=== PATIENT | female | born 1955 | race Caucasian/White ===

== ENCOUNTER 2016-11-18 07:06 | Emergency (ER) | payer BC ==
[2016-11-18] MEDS ORDERED: Tetan/Diph/Pertus SYR(Tdap)* 0.5 ML SYR(BOOSTRIX) use SYR IM ONE (07:17)
[2016-11-18 07:34] VITALS: BP 139/76
--- NOTE | 2016-11-18 07:52 | UC ---
Bite Injury/Animal HPI - HPI Summary HPI Summary: 3 DAYS AGO TRIPPED AND FELL ON HER SLEEPING CAT. CAT WAS STARTLED AND BIT PT TO LEFT UPPER ARM. CAT IS UP TO DATE ON VACCINATIONS INCLUDING RABIES. PT DOES NOT KNOW WHEN HER LAST TETANUS SHOT WAS. NO FEVER. NO DRAINAGE FROM THE WOUND. HAS BEEN CLEANING IT WITH PEROXIDE BUT STARTED TO GET RED YESTERDAY. - History of Current Complaint Stated Complaint: CAT BITE - HER CAT Time Seen by Provider: 11/18/16 07:11 Hx Obtained From: Patient Severity Currently: Moderate Severity Initially: Mild Pain Intensity: 0 Pain Scale Used: 0-10 Numeric Onset/Duration: Gradual Onset, Lasting Days, Still Present Type of Bite: Pet Has Animal Been Immunized?: Yes Character: Puncture Aggravating Factor(s): Nothing Alleviating Factor(s): Nothing Associated Signs And Symptoms: Positive: Erythema Hx of Bite: Provoked by: - PT ACCIDENTALLY FELL ON CAT Animal Available for Observation: Yes Animal Control Notified: Yes - Allergies/Home Medications Allergies/Adverse Reactions: Allergies Allergy/AdvReac Type Severity Reaction Status Date / Time No Known Allergies Allergy Verified 08/17/14 07:23 PMH/Surg Hx/FS Hx/Imm Hx Endocrine History: Hypothyroidism Cardiovascular History: Cardiac Disease - Surgical History Surgical History: Yes Surgery Procedure, Year, and Place: CYSTs REMOVAL - Family History Known Family History: Negative: Hypertension - Social History Alcohol Use: None Substance Use Type: None Smoking Status (MU): Current Every Day Smoker Type: Cigarettes Amount Used/How Often: 1/2 ppd Have You Smoked in the Last Year: Yes Household Exposure Type: Cigarettes Review of Systems Constitutional: Negative Skin: Other - BITE LEFT UPPER ARM Respiratory: Negative Cardiovascular: Negative Gastrointestinal: Negative All Other Systems Reviewed And Are Negative: Yes Physical Exam Triage Information Reviewed: Yes Appearance: Well-Appearing, No Pain Distress, Well-Nourished Vital Signs: Initial Vital Signs Temp 97.6 F 11/18/16 07:14 Pulse 73 11/18/16 07:14 Resp 16 11/18/16 07:14 BP 139/76 11/18/16 07:14 Pulse Ox 100 11/18/16 07:14 Vital Signs Reviewed: Yes Eyes: Positive: Conjunctiva Clear ENT: Positive: Hearing grossly normal Neck: Positive: Supple Respiratory: Positive: No respiratory distress, No accessory muscle use Cardiovascular: Positive: Pulses Normal Abdomen Description: Positive: Soft Musculoskeletal: Positive: No Edema Neurological: Positive: Alert Psychological: Positive: Age Appropriate Behavior Skin: Positive: Other - 4CM X 4CM AREA OF ERYTHEMA AND 5CM X 3.5CM AREA OF ERYTHEMA LEFT UPPER ARM AROUND BITE SITES. SLIGHTLY TTP Bite Injury Course/Dx - Differential Dx/Diagnosis Provider Diagnoses: INFECTED CAT BITE LEFT UPPER ARM Discharge - Discharge Plan Condition: Stable Disposition: HOME Prescriptions: Amoxicillin/Clavulanate TAB* [Augmentin TAB 875*] 875 mg PO BID #20 tab Patient Education Materials: Animal Bite (ED) Referrals: Lola Gastelum MD [Primary Care Provider] - If Needed Additional Instructions: TETANUS IMMUNIZATION GIVEN (TDAP): You have been given an immunization against tetanus. Please record this in your records. In general, a booster is needed only once every 10 years. The tetanus shot protects against tetanus or "lockjaw," which is a complication of certain wound infections (the tetanus shot cannot protect against the actual infection). The immunization site may become warm and red due to local reaction. If this occurs, apply warm compresses and take aspirin or ibuprofen to reduce inflammation and discomfort. Return for evaluation if the reaction becomes severe. SEEK FOLLOW-UP IF YOU ARE NOT IMPROVING EXPECTED.
== END 2016-11-18 07:38 | disposition home or self-care (01) ==
LOC: UCEAST 07:06
DX: S41.152A Open bite of left upper arm, initial encounter (principal); L08.9 Local infection of the skin and subcutaneous tissue, unspecified; W55.01XA Bitten by cat, initial encounter; Y93.01 Activity, walking, marching and hiking; Y92.009 Unspecified place in unspecified non-institutional (private) residence as the place of occurrence of the external cause; Y99.9 Unspecified external cause status; Z72.0 Tobacco use
CPT/HCPCS: 90471; 90715; 99212; G0463

== ENCOUNTER 2017-08-18 09:32 | Emergency (ER) | payer BC ==
[2017-08-18] MEDS ORDERED: Dexamethasone IV* 4 MG/ML 1 ML (4 MG) IV SLOW PU ONE (11:39)
[2017-08-18] MEDS ORDERED: Ketorolac INJ* 30 MG/ML 1 ML VIAL IV PUSH ONE (11:39)
[2017-08-18 12:11] LABS: ABS Basophils 0.1 10^3/ul (0-0.2); ABS Eosinophils 0.2 10^3/ul (0-0.6); ABS Lymphocytes 1.8 10^3/ul (1.0-4.8); ABS Monocytes 0.4 10^3/ul (0-0.8); ABS Neutrophils 5.7 10^3/ul (1.5-7.7); ABS Nucleated RBC 0 10^3/ul; Eosinophil % 2.4 % (0-6); Hematocrit 42 % (35-47); Hemoglobin 14.3 g/dl (12.0-16.0); Lymphocyte % 21.7 % (25-47); Mean Corpuscular HGB Conc 34 g/dl (31-36); Mean Corpuscular Hemoglobin 30 pg (27-31); Mean Corpuscular Volume 89 fL (80-97); Mean Platelet Volume 7.6 um3 (7.4-10.4); Nucleated Red Blood Cells % 0; Platelet Count 264 10^3/ul (150-450); Red Cell Distribution Width 14 % (10.5-15); White Blood Count 8.1 10^3/ul (3.5-10.8)
[2017-08-18 12:30] LABS: Urine Appearance Clear; Urine Blood 1+ (Negative); Urine Color Yellow; Urine Ketones Negative (Negative); Urine Protein Negative (Negative); Urine Urobilinogen Negative (Negative)
[2017-08-18 12:33] LABS: EGFR Non-African American 69.4 (>60)
--- NOTE | 2017-08-18 15:37 | RAD ---
Indication: Low back pain and lower extremity weakness post fall. Comparison: December 09, 2014 CT. Technique: [employer] 1.5 Dannielle [id number] with GEM suite. Noncontrast MRI lumbar sacral spine. Report: Unremarkable conus medullaris and cauda equina. Bone marrow signal is normal throughout. Negative for fracture or spondylolysis at any level. Normal vertebral alignment accounting for exam positioning without spondylolisthesis or subluxation at any level. T12-L1: Unremarkable disc level for age without acquired spinal stenosis. L1-L2: Bilateral small paracentral disc protrusions. Negative for resulting acquired spinal stenosis. L2-L3: Small bilateral foraminal level disc protrusions without significant resulting foraminal stenosis. L3-L4: Unremarkable disc level for age without acquired spinal stenosis. L4-L5: Severe disc space narrowing. Small broad posterior disc extrusion with minimal caudal extension with only minimal resulting impression on the ventral margin of the thecal sac. Degenerative spondylosis and facet joint osteoarthritis without significant resulting foraminal stenosis. L5-S1: Severe disc space narrowing. Broad mild disc extrusion with minimal cephalad extension without significant resulting impression on the neural structures. Facet joint osteoarthritis. Negative for significant resulting foraminal stenosis. Tarlov cysts noted at the LEFT S1 and bilateral S2 levels without concern. Moderate symmetric bilateral posterior paraspinal muscle atrophy. IMPRESSION: 1. Negative for fracture. 2. Multilevel degenerative spondylosis and facet joint osteoarthritis as described without significant resulting acquired spinal stenosis. No significant interval change compared with the 2015 CT.
[2017-08-18 16:23] VITALS: BP 146/88
--- NOTE | 2017-08-18 16:43 | ED ---
Back Pain - HPI Summary HPI Summary: Patient is a 62-year-old female who presents emergency department for low back pain and leg weakness times several days. Patient denies any falls or recent injuries. Patient states pain is mostly located to her left low back and radiates into her left leg. She states that she has had 4 falls today secondary to back pain and leg weakness. She also notes that she feels an urge to urinate and have a bowel movement but is unable to. Symptoms are moderate in severity. Movement makes symptoms worse. Lying flat makes symptoms better. Past medical history of high cholesterol and hypothyroidism. - History of Current Complaint Chief Complaint: EDBackInjuryPain Stated Complaint: FALLS/BACK PAIN Time Seen by Provider: 08/18/17 11:05 Hx Obtained From: Patient Pain Intensity: 7 Pain Scale Used: 0-10 Numeric - Allergies/Home Medications Allergies/Adverse Reactions: Allergies Allergy/AdvReac Type Severity Reaction Status Date / Time No Known Allergies Allergy Verified 08/18/17 09:36 Home Medications: Home Medications Atorvastatin* [Lipitor*] 10 mg PO DAILY 08/18/17 [History Confirmed 08/18/17] Cholecalciferol (Vitamin D3) [Vitamin D3] 2,000 unit PO DAILY 08/18/17 [History Confirmed 08/18/17] Levothyroxine TAB* [Synthroid TAB*] 75 mcg PO DAILY 08/18/17 [History Confirmed 08/18/17] PMH/Surg Hx/FS Hx/Imm Hx Previously Healthy: Yes Endocrine/Hematology History: Reports: Hx Thyroid Disease - hypo Denies: Hx Diabetes Cardiovascular History: Denies: Hx Hypertension, Hx Pacemaker/ICD Respiratory History: Denies: Hx Asthma, Hx Chronic Obstructive Pulmonary Disease (COPD) GI History: Denies: Hx Ulcer Sensory History: Denies: Hx Hearing Aid Psychiatric History: Denies: Hx Panic Disorder - Cancer History Hx Chemotherapy: No Hx Radiation Therapy: No - Surgical History Surgery Procedure, Year, and Place: CYST REMOVAL - Immunization History Date of Influenza Vaccine: Fall 2016 Immunizations Up to Date: Yes Infectious Disease History: No Infectious Disease History: Denies: Hx Clostridium Difficile, Hx Hepatitis, Hx Human Immunodeficiency Virus (HIV), Hx of Known/Suspected MRSA, Hx Shingles, Hx Tuberculosis, Hx Known/ Suspected VRE, Hx Known/Suspected VRSA, History Other Infectious Disease, Traveled Outside the [place] in Last 30 Days - Family History Known Family History: Negative: Hypertension - Social History Occupation: Employed Full-time Lives: With Family Alcohol Use: None Substance Use Type: Reports: None Smoking Status (MU): Current Every Day Smoker Type: Cigarettes Amount Used/How Often: 1/2 ppd Have You Smoked in the Last Year: Yes Review of Systems Constitutional: Negative Negative: Fever, Chills Eyes: Negative ENT: Negative Cardiovascular: Negative Respiratory: Negative Gastrointestinal: Other Negative: Abdominal Pain, Vomiting, Diarrhea, Nausea Positive: other - Difficulty urinating Positive: Other - weakness and pain into legs Skin: Negative Positive: Weakness - legs All Other Systems Reviewed And Are Negative: Yes Physical Exam Triage Information Reviewed: Yes Vital Signs On Initial Exam: Initial Vitals Temp Pulse Resp BP Pulse Ox 97.1 F 70 14 135/92 99 08/18/17 09:33 08/18/17 09:33 08/18/17 09:33 08/18/17 09:33 08/18/17 09:33 Vital Signs Reviewed: Yes Appearance: Positive: Pain Distress - Patient sitting on side of bed, appears uncomfortable but nontoxic. Head/Face: Positive: Normal Head/Face Inspection Eyes: Positive: Normal Neck: Positive: Supple Abdomen Description: Positive: Nontender, Other: Musculoskeletal: Positive: Other - 2/4 patellar deep tendon reflexes bilaterally. Mild decrease in strength to the left great toe with flexion. No sensory deficits. Low lumbar midline tenderness and pain over left SI joint. Neurological: Positive: Normal, CN Intact II-III, Other - Rectal exam performed with nurse in room. Normal perianal sensation and normal tone. Psychiatric: Positive: Normal Diagnostics - Vital Signs Vital Signs Temp Pulse Resp BP Pulse Ox 08/18/17 16:20 98.7 F 57 16 146/88 98 08/18/17 14:15 97.3 F 18 118/63 08/18/17 09:33 97.1 F 70 14 135/92 99 - Laboratory Lab Results: Lab Results 08/18/17 08/18/17 08/18/17 Range/Units 11:30 12:03 12:03 WBC 8.1 (3.5-10.8) 10^3/ul RBC 4.70 (4.0-5.4) 10^6/ul Hgb 14.3 (12.0-16.0) g/dl Hct 42 (35-47) % MCV 89 (80-97) fL MCH 30 (27-31) pg MCHC 34 (31-36) g/dl RDW 14 (10.5-15) % Plt Count 264 (150-450) 10^3/ul MPV 7.6 (7.4-10.4) um3 Neut % (Auto) 70.4 (38-83) % Lymph % (Auto) 21.7 L (25-47) % Reeves % (Auto) 4.4 (0-7) % Eos % (Auto) 2.4 (0-6) % Baso % (Auto) 1.1 (0-2) % Absolute Neuts (auto) 5.7 (1.5-7.7) 10^3/ul Absolute Lymphs (auto) 1.8 (1.0-4.8) 10^3/ul Absolute Monos (auto) 0.4 (0-0.8) 10^3/ul Absolute Eos (auto) 0.2 (0-0.6) 10^3/ul Absolute Basos (auto) 0.1 (0-0.2) 10^3/ul Absolute Nucleated RBC 0 10^3/ul Nucleated RBC % 0 Sodium 140 (139-145) mmol/L Potassium 3.5 (3.5-5.0) mmol/L Chloride 103 (101-111) mmol/L Carbon Dioxide 30 (22-32) mmol/L Anion Gap 7 (2-11) mmol/L BUN 11 (6-24) mg/dL Creatinine 0.83 (0.51-0.95) mg/dL Est GFR ( Amer) 89.3 (>60) Est GFR (Non-Af Amer) 69.4 (>60) BUN/Creatinine Ratio 13.3 (8-20) Glucose 93 (70-100) mg/dL Calcium 9.3 (8.6-10.3) mg/dL Total Bilirubin 0.90 (0.2-1.0) mg/dL AST 15 (13-39) U/L ALT 14 (7-52) U/L Alkaline Phosphatase 81 (34-104) U/L Total Protein 7.1 (6.4-8.9) g/dL Albumin 4.1 (3.2-5.2) g/dL Globulin 3.0 (2-4) g/dL Albumin/Globulin Ratio 1.4 (1-3) Urine Color Yellow Urine Appearance Clear Urine pH 5.0 (5-9) Ur Specific [place] 1.010 (1.010-1.030) Urine Protein Negative (Negative) Urine Ketones Negative (Negative) Urine Blood 1+ A (Negative) Urine Nitrate Negative (Negative) Urine Bilirubin Negative (Negative) Urine Urobilinogen Negative (Negative) Ur Leukocyte Esterase Negative (Negative) Urine WBC (Auto) Trace(0-5/hpf) (Absent) Urine RBC (Auto) Trace(0-2/hpf) (Absent) Ur Squamous Epith Cells Present A (Absent) Urine Bacteria Absent (Absent) Urine Glucose Negative (Negative) Result Diagrams: 08/18/17 12:03 08/18/17 12:03 Lab Statement: Any lab studies that have been ordered have been reviewed, and results considered in the medical decision making process. Back Pain Course/Dx - Course Course Of Treatment: Pt. presenting to the ER for low back pain, leg weakness and falls. Exam and symptoms are concerning for possible cord compression. Bladder scan post void <20cc. Case was discussed with Dr. Leigh who recommends MRI. Basic labs and urine checked which were unremarkable. Pt. was given a dose of IV decadron and toradol. She declines narcotic pain medications. MRI per radiology: IMPRESSION: 1. Negative for fracture. 2. Multilevel degenerative spondylosis and facet joint osteoarthritis as described without. significant resulting acquired spinal stenosis. No significant interval change compared. with the 2015 CT. On re-exam pt. is resting comfortably. Her pain is minimally improved. Will send rx for a few days of pain meds and medrol dose pack. PATIENT CARE PROVIDER was queried and no red flag symptoms side. Patient was given information for neurosurgery for follow-up. Work excuse given. Return to the ear symptoms change or worsen. Patient understands and agrees with plan. - Diagnoses Differential Diagnosis/HQI/PQRI: Positive: Arthritis, Cauda Equina Syndrome, Compressive Cord Syndrome, Epidural Abscess, Fracture, Herniated Disc, Neoplasm , Osteomyelitis, Strain, Sprain Provider Diagnoses: Herniated disc, Spinal stenosis Discharge - Sign-Out/Discharge Documenting (check all that apply): Discharge/Admit/Transfer - Discharge Plan Condition: Good Disposition: HOME Prescriptions: Hydrocodone/Acetaminophen [Hydrocodone-Acetamin 5-325 mg] 1 each PO Q6H 3 Days # 12 tablet MDD 4 tablets methylPREDNISolone [Medrol Dosepak 4 MG*] 0 mg PO .SEE BRIAN INSTRUCTION #1 tab Patient Education Materials: Lumbar Disc Herniation (ED), Lumbar Spinal Stenosis (ED), Degenerative Disc Disease (ED) Forms: *Work Release Referrals: Lola Gastelum MD [Primary Care Provider] - Eliecer Nava MD [Medical Doctor] - Additional Instructions: Schedule a follow up appointment with neurosurgery Medication as directed Return to ER if symptoms change or worsen - Billing Disposition and Condition Condition: GOOD Disposition: HOME
== END 2017-08-18 16:24 | disposition home or self-care (01) ==
LOC: ED 09:32
DX: M51.26 Other intervertebral disc displacement, lumbar region (principal); M48.061 Spinal stenosis, lumbar region without neurogenic claudication; M47.816 Spondylosis without myelopathy or radiculopathy, lumbar region; F17.210 Nicotine dependence, cigarettes, uncomplicated
CPT/HCPCS: 36415; 72148; 80053; 81003; 81015; 85025; 87086; 96374; 96375; 99283; J1100; J1885

== ENCOUNTER 2017-08-30 12:47 | Emergency (ER) | payer BC ==
[2017-08-30] MEDS ORDERED: LORazepam TAB(*) 1 MG PO ONE (13:40)
[2017-08-30] MEDS ORDERED: Ketorolac INJ* 60 MG/2 ML VIAL IM ONE (13:40)
[2017-08-30 15:31] VITALS: BP 146/99
--- NOTE | 2017-08-30 15:44 | ED ---
Richmond Banks Natalie, scribed for Bro Devine MD on 08/30/17 at 1418 . Back Pain - HPI Summary HPI Summary: The pt is a 62 y/o F presenting to the ED c/o lower back pain starting almost a month ago, worsening in the last week. She had come to the ED on 08/18/17 for the same pain, but it has gotten increasingly worse despite being on pain medication and steroids. She states that the pain feels like her insides are coming out, and it hurts so bad that she has to leave work. The pain is rated 10/10 in severity. Pt additionally c/o tingling sensation in legs with ambulation Pt denies urinary and bowel symptoms. Her PCP is Dr. Gastelum. - History of Current Complaint Chief Complaint: EDBackInjuryPain Stated Complaint: PELVIC PAIN Time Seen by Provider: 08/30/17 13:20 Hx Obtained From: Patient Onset/Duration: Sudden Onset, Lasting Weeks, Still Present Onset/Duration: Started Weeks Ago, Resolved Timing: Lasting Weeks Back Pain Location: Is Diffuse - lower back Severity Initially: Severe Severity Currently: Severe Pain Intensity: 10 Pain Scale Used: 0-10 Numeric Aggravating Symptom(s): Movement Alleviating Symptom(s): Nothing Associated Signs And Symptoms: Positive: Tingling - in legs when walking, Other - BM urgency feeling - Allergies/Home Medications Allergies/Adverse Reactions: Allergies Allergy/AdvReac Type Severity Reaction Status Date / Time No Known Allergies Allergy Verified 08/30/17 12:59 PMH/Surg Hx/FS Hx/Imm Hx Endocrine/Hematology History: Reports: Hx Thyroid Disease - hypo Denies: Hx Diabetes Cardiovascular History: Denies: Hx Hypertension, Hx Pacemaker/ICD Respiratory History: Denies: Hx Asthma, Hx Chronic Obstructive Pulmonary Disease (COPD) GI History: Denies: Hx Ulcer Sensory History: Denies: Hx Hearing Aid Psychiatric History: Denies: Hx Panic Disorder - Cancer History Hx Chemotherapy: No Hx Radiation Therapy: No - Surgical History Surgery Procedure, Year, and Place: CYST REMOVAL - Immunization History Date of Influenza Vaccine: Fall 2016 Infectious Disease History: No Infectious Disease History: Denies: Hx Clostridium Difficile, Hx Hepatitis, Hx Human Immunodeficiency Virus (HIV), Hx of Known/Suspected MRSA, Hx Shingles, Hx Tuberculosis, Hx Known/ Suspected VRE, Hx Known/Suspected VRSA, History Other Infectious Disease, Traveled Outside the [place] in Last 30 Days - Family History Known Family History: Negative: Hypertension - Social History Alcohol Use: None Substance Use Type: Reports: None Smoking Status (MU): Heavy Every Day Tobacco Smoker Type: Cigarettes Amount Used/How Often: 1/2 ppd Have You Smoked in the Last Year: Yes Review of Systems Positive: Other - feeling of urgency for BM Positive: Paresthesia - in legs when walking All Other Systems Reviewed And Are Negative: Yes Physical Exam - Summary Physical Exam Summary: Appearance: The patient is well-nourished in no acute distress and in no acute pain. Skin: The skin is warm and dry and skin color reflects adequate perfusion. HEENT: The head is normocephalic and atraumatic. The pupils are equal and reactive. The conjunctivae are clear and without drainage. Nares are patent and without drainage. Mouth reveals moist mucous membranes and the throat is without erythema and exudate. The external ears are intact. The ear canals are patent and without drainage. The tympanic membranes are intact. Neck: the neck is supple with full range of motion and non-tender. There are no carotid bruits. There is no neck vein distension. Respiratory: Chest is non-tender. Lungs are clear to auscultation and breath sounds are symmetrical and equal. Cardiovascular: Heart is regular rate and rhythm. There is no murmur or rub auscultated. There is no peripheral edema and pulses are symmetrical and equal. Abdomen: The abdomen is soft and non-tender. There are normal bowel sounds heard in all four quadrants and there is no organomegaly palpated. Musculoskeletal: There is no back tenderness noted. Extremities are non-tender with full range of motion, except for positive straight leg raise in the right leg. There is good capillary refill. There is no peripheral edema or calf tenderness elicited. Neurological: Patient is alert and oriented to person, place and time. The patient has symmetrical motor strength in all extremities, except positive straight leg test in right leg. Cranial nerves are grossly intact. Deep tendon reflexes are symmetrical and equal in all four extremities. Psychiatric: The patient has an appropriate affect and does not exhibit any anxiety or depression. Triage Information Reviewed: Yes Vital Signs On Initial Exam: Initial Vitals Temp Pulse Resp BP Pulse Ox 98.1 F 61 16 123/93 97 08/30/17 12:55 08/30/17 12:55 08/30/17 12:55 08/30/17 12:55 08/30/17 12:55 Vital Signs Reviewed: Yes Diagnostics - Vital Signs Vital Signs Temp Pulse Resp BP Pulse Ox 08/30/17 13:21 55 135/82 98 08/30/17 12:55 98.1 F 61 16 123/93 97 - Laboratory Lab Statement: Any lab studies that have been ordered have been reviewed, and results considered in the medical decision making process. Back Pain Course/Dx - Course Course Of Treatment: Ms. Nelson is in a tough spot. She has a new diagnosis of spinal stenosis and has recently seen a neurosurgeon who said it is not surgical. She had a recent steroid burst which didn't help much. Acutely, she got some relief with ativan as a muscle relaxer and ketorolac. 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 Perhaps PT would be of help. - Diagnoses Provider Diagnoses: Spinal stenosis Discharge - Sign-Out/Discharge Documenting (check all that apply): Discharge/Admit/Transfer - Discharge Plan Condition: Stable Disposition: HOME Prescriptions: LORazepam TAB(*) [Ativan TAB(*)] 1 mg PO Q6H PRN #20 tab MDD 4 PRN Reason: Pain traMADol TAB* [Ultram*] 50 mg PO Q6HR PRN #20 tab MDD 4 PRN Reason: Pain Patient Education Materials: Lumbar Spinal Stenosis (ED) Forms: *Work Release Referrals: Lola Gastelum MD [Primary Care Provider] - 09/02/17 Additional Instructions: Please take Ativan and Tramadol as prescribed. Follow up with your primary care physician, Dr. Gastelum, next week. Please return to the emergency department for any new or worsening symptoms. - Billing Disposition and Condition Condition: STABLE Disposition: HOME The documentation as recorded by the Richmond contreras Natalie accurately reflects the service I personally performed and the decisions made by me, Bro Devine MD.
== END 2017-08-30 15:29 | disposition home or self-care (01) ==
LOC: ED 12:47
DX: M48.00 Spinal stenosis, site unspecified (principal); M54.5 Low back pain; F17.210 Nicotine dependence, cigarettes, uncomplicated; R20.0 Anesthesia of skin
CPT/HCPCS: 96372; 99282; A9270-GY; J1885

== ENCOUNTER 2018-01-18 09:34 | Emergency (ER) | payer SELFPAY ==
[2018-01-18 09:42] VITALS: BP 111/69
--- NOTE | 2018-01-18 10:01 | UC ---
Lower Extremity/Ankle HPI - HPI Summary HPI Summary: States she fell yesterday while at [facility], stepped on a wet plastic bag which was on the floor and slipped, hurting her right hip and left foot. She can walk but it hurts on the top of her foot. She has chronic lumbago and follows up with pain management ; states the day before the accident occurred she had cortisone injections in right lumbar area and suspects that pain has been mild to moderate due to that. Denies tingling, numbness on the areas. She still has some soreness on hip and has taken Aleve without any relief. - History of Current Complaint Chief Complaint: UCLowerExtremity Stated Complaint: FOOT AND THIGH INJURY Time Seen by Provider: 01/18/18 09:40 Hx Obtained From: Patient ?: No Onset/Duration: Sudden Onset, Lasting Days Severity Initially: Mild Severity Currently: Moderate Pain Intensity: 6 Aggravating Factor(s): Other - palpation of the area Alleviating Factor(s): Rest Able to Bear Weight: Yes - Risk Factors Gout Risk Factors: Age Over 40, Hyperlipidemia DVT Risk Factors: Negative Septic Arthritis Risk Factor: Negative - Allergies/Home Medications Allergies/Adverse Reactions: Allergies Allergy/AdvReac Type Severity Reaction Status Date / Time No Known Allergies Allergy Verified 01/18/18 09:44 PMH/Surg Hx/FS Hx/Imm Hx - Additional Past Medical History Additional PMH: chronic lumbago psoriasis Endocrine History: Hypothyroidism, Dyslipidemia - Surgical History Surgical History: Yes Surgery Procedure, Year, and Place: CYST REMOVAL UNSPECIFIED BREAST - Family History Known Family History: Negative: Hypertension - Social History Alcohol Use: None Substance Use Type: None Smoking Status (MU): Heavy Every Day Tobacco Smoker Type: Cigarettes Amount Used/How Often: 1/2 ppd Have You Smoked in the Last Year: Yes Household Exposure Type: Cigarettes Review of Systems Musculoskeletal: Arthralgia, Myalgia All Other Systems Reviewed And Are Negative: Yes Physical Exam Triage Information Reviewed: Yes Appearance: Well-Appearing, No Pain Distress, Well-Nourished Vital Signs: Initial Vital Signs Temp 98 F 01/18/18 09:38 Pulse 57 01/18/18 09:38 Resp 16 01/18/18 09:38 BP 111/69 01/18/18 09:38 Pulse Ox 100 01/18/18 09:38 Vital Signs Reviewed: Yes Eyes: Positive: Conjunctiva Clear ENT: Positive: Hearing grossly normal Neck: Positive: Supple, Nontender, No Lymphadenopathy Respiratory: Positive: Chest non-tender Cardiovascular: Positive: Pulses Normal, Brisk Capillary Refill Abdomen Description: Positive: Nontender Musculoskeletal: Positive: Strength Intact, ROM Intact, No Edema Neurological: Positive: Alert, Muscle Tone Normal, Other: - Isaac test negative , SLR negative, FROM of hips b/l, tender on soft tissue in right gluteal area, no hematoma or mass. Examination of left foot: no edema, no visible bruising, normal capillary refill, pedal pulses are present, tenderness on palpation of medial malleolus and dorsum foot near navicular area. No tenderness on fifth metatarsal area. Pes planus. Gait is normal, can tiptoe and walk on heels. Skin: Positive: rashes - numular rash with scaly appearance and silver red borders on dorsum of left foot and barrow Lower Extremity Course/Dx - Course Course Of Treatment: xrays of right hip and left foot were negative for fracture , to follow up with PCP in a week, discussed repeat imaging if symptoms persist. RICE, continue rest. - Differential Dx/Diagnosis Provider Diagnoses: Right Hip contussion. Left foot sprain Discharge - Sign-Out/Discharge Documenting (check all that apply): Patient Departure All imaging exams completed and their final reports reviewed: Yes - Discharge Plan Condition: Stable Disposition: HOME Patient Education Materials: Foot Sprain (ED), Hip Contusion (ED), R.I.C.E. Treatment (ED), How to Stop Smoking (ED) Referrals: Lola Gastelum MD [Primary Care Provider] - Additional Instructions: follow up with your primary care physician in a week - Billing Disposition and Condition Condition: STABLE Disposition: Home
--- NOTE | 2018-01-18 10:46 | RAD ---
HISTORY: s/p fall pain on dorsum of foot COMPARISONS: None VIEWS: 3 , Frontal, lateral, and oblique views of the left foot FINDINGS: BONE DENSITY: Normal. BONES: There is no displaced fracture. There is no Lisfranc deformity. There are posterior and plantar enthesophytes. JOINTS: There is no arthropathy. ALIGNMENT: There is no dislocation. SOFT TISSUES: Unremarkable. OTHER FINDINGS: None. IMPRESSION: NO ACUTE OSSEOUS INJURY. IF SYMPTOMS PERSIST, RECOMMEND REPEAT IMAGING.
--- NOTE | 2018-01-18 10:47 | RAD ---
HISTORY: s/p fall contusion right hip COMPARISONS: None VIEWS: 3 , Frontal view of the pelvis with frontal and frog-leg views of the right hip FINDINGS: BONE DENSITY: There is diffuse osteopenia. BONES: There is no displaced fracture. 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 ALIGNMENT: There is no dislocation. SOFT TISSUES: Unremarkable. OTHER FINDINGS: None. IMPRESSION: NO RADIOGRAPHIC EVIDENCE FOR HIP FRACTURE. X-RAYS MAY BE NEGATIVE WITH NONDISPLACED HIP FRACTURE, IF THERE IS PERSISTENT CLINICAL CONCERN, RECOMMEND CONSIDERATION OF MRI. IN THE SETTING OF CONTRAINDICATION TO MRI OR LIMITATION IN EMERGENT ACCESS TO MRI, CT WOULD BE SUGGESTED.
== END 2018-01-18 11:06 | disposition home or self-care (01) ==
LOC: UCEAST 09:34
DX: S70.01XA Contusion of right hip, initial encounter (principal); S93.602A Unspecified sprain of left foot, initial encounter; W01.0XXA Fall on same level from slipping, tripping and stumbling without subsequent striking against object, initial encounter; Y93.01 Activity, walking, marching and hiking; Y92.512 Supermarket, store or market as the place of occurrence of the external cause
CPT/HCPCS: 99211; G0463

== ENCOUNTER 2018-02-20 15:43 | Emergency (ER) | payer BC ==
[2018-02-20 16:05] VITALS: BP 122/76
--- NOTE | 2018-02-20 16:34 | UC ---
Upper Extremity HPI - HPI Summary HPI Summary: 62-year-old female presents with one-day history of bilateral shoulder aches. She was seen here on 02/14/2018 and diagnosed with a right lower lobe pneumonia. She was started on a seven-day course of ciprofloxacin which she completed today. She was seen by her primary care provider on 02/17/2018 in follow-up and was felt to be improving. Denies fever, chills, chest pain, shortness of breath, cough, abdominal pain, nausea, vomiting, numbness, tingling , or muscle weakness. - History of Current Complaint Chief Complaint: UCGeneralIllness Stated Complaint: ACHES Time Seen by Provider: 02/20/18 16:16 Hx Obtained From: Patient Onset/Duration: Gradual Onset, Lasting Days - 2 Severity Currently: Moderate Pain Intensity: 7 Character: Aching Aggravating Factor(s): Movement, Lifting, Extension Alleviating Factor(s): Nothing Associated Signs And Symptoms: Negative: Swelling, Redness, Bruising, Fever, Weakness, Numbness/Tingling - Allergies/Home Medications Allergies/Adverse Reactions: Allergies Allergy/AdvReac Type Severity Reaction Status Date / Time No Known Allergies Allergy Verified 02/20/18 16:05 PMH/Surg Hx/FS Hx/Imm Hx Endocrine History: Hypothyroidism, Dyslipidemia Respiratory History: Pneumonia - Surgical History Surgical History: Yes Surgery Procedure, Year, and Place: CYST REMOVAL UNSPECIFIED BREAST - Family History Family History: Noncontributory - Social History Occupation: Employed Part-time Lives: With Family Alcohol Use: None Substance Use Type: None Smoking Status (MU): Heavy Every Day Tobacco Smoker Type: Cigarettes Amount Used/How Often: 1/2 ppd Have You Smoked in the Last Year: Yes Household Exposure Type: Cigarettes Review of Systems Constitutional: Negative Skin: Negative Respiratory: Negative Cardiovascular: Negative Gastrointestinal: Negative Motor: Negative Neurovascular: Negative Musculoskeletal: Myalgia - See HPI Neurological: Negative Is Patient Immunocompromised?: No All Other Systems Reviewed And Are Negative: Yes Physical Exam Triage Information Reviewed: Yes Appearance: Well-Appearing, No Pain Distress, Well-Nourished Vital Signs: Initial Vital Signs Temp 97.7 F 02/20/18 16:00 Pulse 74 02/20/18 16:00 Resp 20 02/20/18 16:00 BP 122/76 02/20/18 16:00 Pulse Ox 97 02/20/18 16:00 Vital Signs Reviewed: Yes Neck: Positive: Supple, Nontender Respiratory: Positive: Lungs clear, Normal breath sounds, No respiratory distress Cardiovascular: Positive: RRR, No Murmur, Pulses Normal, Brisk Capillary Refill Musculoskeletal: Positive: Other: - Bilateral anterior shoulder tenderness. Full painful ROM. Neurological: Positive: Alert, Muscle Tone Normal, Other: - Sensation intact distally Skin Exam: Normal Upper Extremity Course/Dx - Course Course Of Treatment: 62 year old female with 2 day history of bilateral shoulder myalgia. She was recently treated with levofloxacin for RLL pneumonia and completed last dose today. Afebrile. VSS. Exam unremarkable except for some mild tenderness over bilateral anterior shoulders and painful ROM. Suspect that this is an adverse reaction to the levofloxacin. Recommend OTC analgesics and watchful waiting with follow up with PCP in 7 days. Warning symptoms requiring immediate medical attention in the ED were reviewed. Verbalizes understanding and agrees with POC. - Differential Dx/Diagnosis Differential Diagnosis/HQI/PQRI: Arthritis, Other - pleurisy Provider Diagnoses: Adverse medication reaction Discharge - Sign-Out/Discharge Documenting (check all that apply): Patient Departure All imaging exams completed and their final reports reviewed: No Studies - Discharge Plan Condition: Stable Disposition: HOME Patient Education Materials: Arthralgia (ED) Referrals: Lola Gastelum MD [Primary Care Provider] - 7 Days (For recheck) Additional Instructions: I suspect your symptoms are an adverse reaction to the antibiotic you were prescribed for the pneumonia. This a fairly common side effect and typically resolves within 1 week of stopping the medication. Take acetaminophen (Tylenol) according to directions as needed for pain. Follow up with you primary care provider in 7 days for a re-evaluation of your symptoms. You should inform your health care providers of this reaction and avoid taking the medication in the future unless absolutely necessary. Seek immediate medical attention in the emergency room if you develop fever greater than 100.5 F, have chest pain, shortness of breath, progressive muscle weakness, or any worsening of symptoms. - Billing Disposition and Condition Condition: STABLE Disposition: Home - Attestation Statements Provider Attestation: Per institutional requirements, I have reviewed the chart, however, I was not consulted specifically or made aware of this patient by the midlevel provider. I did not personally evaluate, interact with , or disposition this patient
== END 2018-02-20 16:45 | disposition home or self-care (01) ==
LOC: UCEAST 15:43
DX: T36.8X5A Adverse effect of other systemic antibiotics, initial encounter (principal); M79.10 Myalgia, unspecified site; Y92.9 Unspecified place or not applicable; F17.210 Nicotine dependence, cigarettes, uncomplicated
CPT/HCPCS: 99211; G0463

== ENCOUNTER 2018-09-17 07:01 | Emergency (ER) | payer BC ==
--- OUTSIDE RECORDS SUMMARY | 2018-09-17 07:09 | XMS REPORT | Continuity of Care Document ---
:1955 External Reference #:[id number] Author Name Shayy Jones NP Address [address] [facility] [place] [address] Care Team Providers Name Role Phone Desmond Gastelum M.D. Care Team Information Emergency Technician Unavailable Desmond Gastelum M.D. Primary Care Physician Unavailable Payers Date Identification Numbers Payment Provider Subscriber Effective: 2004 Policy Number: [id number] Michael Dawson Group Number: [id number] [address] [address] PayID: [id number] [place] [address] Advance Directives Description No Information Available Problems Active Problems Provider Date Hypothyroidism Ken Miranda M.D. Onset: 07/20/2011 Hyperlipidemia Ken Miranda M.D. Onset: 03/22/2014 Tobacco user Desmond Gastelum M.D. Onset: 11/18/2014 Vitamin D deficiency Desmond Gastelum M.D. Onset: 01/24/2015 Irritable bowel syndrome characterized by Jeffery Tinajero M.D. Onset: 11/28 constipation Generalized abdominal pain Jeffery Tinajero M.D. 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 [employer] Tobacco Use Reviewed: 03/22/18 Current Cigarette Smoker 1/2 ppd Smoking Status Reviewed: 03/22/18 Current Cigarette Smoker 1/2 ppd ETOH Use Rare Tobacco Use Start: Unknown Light tobacco smoker (10 or fewer cigarettes/day) Exercise Type/Frequency Does not exercise Current Allergies, Adverse Reactions, Alerts Active Allergies Reaction Severity Comments Date Levofloxacin 02/28/2018 Inactive Allergies NKDA 01/08/2011 Medications Active Medications SIG Qnty Indications Ordering Provider Date Cetirizine HCL 1 by mouth 14tabs R60.0 Shayy Matute 08/21/2018 10mg Tablets every day DEISY Jones Ibuprofen 1 tab by mouth 90tabs M54.2 [facility], 10/05/2016 600mg Tablets every 8 hours M.D. as needed pain. take with food Vitamin D 1 tab daily 30caps E55.9 Desmond Princeton, 11/22/2014 2000Unit Capsules M.D. Atorvastatin Calcium take 1 tablet 90tabs E78.2 Shayy Matute 11/22/2014 10mg by mouth once DEISY Jones Tablets daily Levothyroxine Sodium take 1 tablet 90tabs E03.8 Shayy Matute 11/29/2010 75mcg by mouth once DEISY Jones Tablets daily History Medications Fluconazole one tab by mouth 3tabs B37.0 [facility], 05/28/2018 - 150mg daily x 3 days M.D. 08/21/2018 Tablets Amoxicillin/Clavulana 1 by mouth twice 14tabs [facility], 05/28/2018 - te Potassium a day x 7 days M.D. 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 11/28/2017 Tablets needed Ra Vitamin D-3 take 1 capsule by 30caps Judson Cuello 05/06/2017 - 2000Unit mouth once daily Amira Martinez 11/28/2017 Capsules Fluconazole one tab by mouth 3tabs B37.0 [facility], 03/05/2017 - 150mg daily x 3 days M.D. 11/28/2017 Tablets Amoxicillin/Clavulana 1 by mouth twice 14tabs [facility], 12/11/2016 - te Potassium a day x 7 days M.D. 12/20/2016 500-125mg Tablets Cyclobenzaprine HCL 1/2-1 tablet 30tabs M54.2 Desmond Princeton, 10/05/2016 - 5mg every night at M.D. 03/04/2017 Tablets bedtime as needed Doxycycline Hyclate 2 by mouth by 2tabs Desmond Gastelum, 09/20/2016 - mouth x1 M.D. 10/04/2016 100mg Tablets Chantix Starting 1 starter pack 1tabs Z71.6 Desmond Gastelum, 03/02/2016 - Month Kranthi for a month,then M.D. 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 03/02/2016 Suspension a day, x 1 week Physical Therapy treatment and M54.31 Shanice Francis, 09/15/2015 - evaluation of Afnp-C 01/21/2016 lower back / right sciatic pain Bupropion HCL ER (XL) 1 by mouth every 30tabs Z71.6 Shanice Francis, 2015 - day [facility]np-C 01/21/2016 150mg Tablets ER 24HR Acetaminophen-Codeine 1 tab by mouth 60tabs R10.31 Desmond Gastelum, 2014 - #3 every 6 hours as M.D. 07/11/2016 300-30mg Tablets needed Bupropion HCL ER (XL) 1 by mouth every 30tabs F17.210 [facility], 2014 - day M.D. 08/10/2015 150mg Tablets ER 24HR Sulfamethoxazole/Trim 1 tab by mouth 10tabs 599.0 [facility], 2014 - ethoprim DS twice a day x5 M.D. 12/17/2014 800-160mg days Tablets Fluconazole one tab by mouth 3tabs 112.0 [facility], 12/02/2014 - 150mg daily x 3 days M.D. 01/24/2015 Tablets Vitamin D 1 tab by mouth 10caps [facility], 11/22/2014 - (Ergocalciferol) every week M.D. 01/24/2015 [id number] Capsules Gabapentin 1 tab by three 30caps 356.8 [facility], 11/18/2014 - 400mg times day M.D. 01/24/2015 Capsules Augmentin 1 by mouth twice 20tabs [facility], 11/08/2014 - 875-125mg a day x 10 days M.D. 11/18/2014 Tablets take with food Fluconazole take 1 tab daily 7tabs 112.0 [facility], 11/03/2014 - 150mg for next 7 days M.D. 11/18/2014 Tablets Fluconazole one tab by mouth 2tabs 112.0 [facility], 10/27/2014 - 150mg once, may repeat M.D. 11/03/2014 Tablets in five days Nystatin 1 teaspoon by 50ml 112.0 [facility], 10/27/2014 - [id number]/ML mouth four times M.D. 11/18/2014 Suspension a day, x 1 week Bactrim DS use bid 10tabs Ken Tucker 03/11/2013 - 800-160mg Amira Miranda 03/22/2014 Tablets Chantix Starting 30tabs 305.1 Ken Tucker 06/09/2012 - Month Kranthi Miranda M.D. 12/10/2012 0.5mg X 11 & 1 mg X 42 Tablets Medrol Dosepak as directed 1tabs Ken Tucker 05/26/2012 - 4mg Amira Miranda 12/10/2012 Tablets Dyazide take one (1) 30caps Ken Tucker 01/11/2012 - 37.5-25mg capsule(s) by Amira Miranda 05/26/2012 Capsules mouth once daily Physical Therapy treatment and Ken Tucker 07/31/2011 - evaluation Amira Miranda 11/19/2011 shoulder and neck pain Clobetasol Propionate use bid 30units Ken Tucker 07/20/2011 - Amira Miranda 11/19/2011 0.05% Cream Doxycycline Hyclate use 1bid 28caps Ken Tucker 11/30/2010 - Amira Miranda 05/16/[address] Elzbieta Hough apply to affected 30units Ken Tucker 11/24/2010 - 0.05% Cream areas bid prn Amira Miranda 05/16/2011 Levothyroxine Sodium 1 po qd 30tabs Olivia Romero, 10/13/2010 - CANAL STRUCTURE OPERATOR 11/29/2010 50mcg Tablets Mycelex dissolve 1 cecilia 70units 462 Abigail 02/16/2009 - 10mg Cecilia in mouth 5x/day [facility], 03/02/2009 Afnp-C Work Excuse unable to work Latrell Rice, 02/04/2009 - 02/04-02/06 due M.D. 10/13/2010 to illness Prednisone 2 bid x 3 days 21tabs Latrell Rice, 02/04/2009 - 10mg Tablets then 1 bid x 3 M.D. 10/13/2010 days then 1 qd x 3 days Avelox 1 po qd 10tabs Latrell Rice, 02/04/2009 - 400mg Tablets M.D. 10/13/2010 Robitussin A-C 1-2 tsp po q4 hs 120cc Abigail 03/05/2007 - prn cough [facility], 01/31/2009 100mg;10mg/5ML Syrup Afnp-C Robitussin ac 1-2 TSP PO Q4H 4Oz Abigail 02/24/2007 - prn Cough [facility], 03/03/2007 Afnp-C Chantix 1PK Abigail 02/24/2007 - Starter Kranthi as [facility], 03/26/2007 Dir [facility]np-C Chantix 1 PO bid 60units Abigail 02/24/2007 - 1mg as Dir Bruce, 01/31/2009 Afnp-C Proventil HFA 2 Puffs q 3-4h 1units Abigail 02/24/2007 - Inhaler prn Wheeze/Cough Bruce, 02/14/2009 Mdi [facility]np[facility] Zithromax Z-Kranthi as directed 1Pack Judson Cuello 02/20/2007 - 250mg Amira Martinez 02/25/2007 Tablets Keflex 1 PO bid 20caps 462 Judson Cuello 12/10/2006 - 500mg Capsules Amira Martinez 12/20/2006 Prevacid Samples 536.8 Olivia Nick, 12/01/2005 - 30mg Capsules CANAL STRUCTURE OPERATOR 12/10/2006 Wellbutrin XL 1 po qd 30tabs 305.1 Olivia Romero, 12/01/2005 - 300mg CANAL STRUCTURE OPERATOR 12/10/2006 Tablets Compazine 1-2 po q 6h prn 16tabs 599.0 Olivia Romero, 11/27/2005 - 5mg Tablets nausea/vomiting CANAL STRUCTURE OPERATOR 12/01/2005 Note kota was seen 599.0 Olivia Romero, 11/27/2005 - by me today and CANAL STRUCTURE OPERATOR 12/10/2006 may not return to work until Saturday, 8\\[id number]\\[id number] Biaxin 1 po bid 20units Abigail 02/14/2004 - 500mg [place], 02/04/2009 Afnp-C Guaifenesin one bid 20units Shanice Francis, 02/14/2004 - 600mg [facility]np-[facility] 04/15/2005 Nicoderm 1 patch qd as 30units Mickie wei 02/14/2004 - 14mg jairo Morillo M.D. 12/01/2005 Bextra 1 qd prn Samples Latrell Rice, 11/16/2002 - 20mg Amira 02/14/2004 Robitussin ac 1-2 TSP PO Q4H 4Oz Abigail 02/25/2001 - prn Cough Bruce, 03/04/2001 Afnp-C Omnicef 1 PO bid 10units Abigail 02/25/2001 - 300mg [place], 03/02/2001 Afnp-C Robitussin ac 1-2 TSP PO Q4H 4Oz Shanice Tito, 02/07/2001 - prn [facility]np-C 02/17/2001 Albuterol Inhaler 2 puffs q 4 hrs 1units Abigail 02/07/2001 - prn [place], 02/24/2007 Afnp-C Ees 1 tid X 10 Days 30units Shanice Tito, 02/07/2001 - 400mg [facility]np-[facility] 02/17/2001 Emycin 1 PO tid For 10 30units Jogre Dejesus 04/26/1999 - 333mg Days Amira Breen 02/07/2001 Robitussin ac 1-2 TSP PO Q4H 4Oz Shanice Tito, 02/15/1998 - prn Cough [facility] 02/25/1998 E-Mycin 333MG 1 PO tid X 10 30units Shanice Francis, 02/15/1998 - 333mg Days [facility]np-C 02/25/1998 Naproxen 1 PO tid prn 30units Jorge Dejesus 06/07/1997 - 375mg Tab Amira Breen 04/26/1999 Nicotine one patch daily 44units Unknown - 21mg/24HR for six weeks 12/10/2012 Patches 24HR then change to lower dose (see ) Augmentin 1 po bid Unknown - 875-125mg 01/19/2013 Tablets Lorazepam 1 by mouth every 30tabs Desmond Gastelum, - 1mg Tablets 6 hours as needed M.Braxton 11/28/2017 pain and muscle spasms Immunizations CPT Code Status Date Vaccine Lot # [id number] Given 03/22/2018 Influenza Virus Vaccine, Recombinant Dna, [id number] [place] [id number] Given 03/05/2017 Pneumococcal Immunization [id number] Given 01/25/2017 Influenza Vac, Quadrivalent, Slit Virus, Im [id number] 32329 Given 03/02/2016 Influenza Vac, Quadrivalent, Slit Virus, Im [id number] 22290 Given 01/14/2015 Influenza Vac, [place] [address] Given 11/18/2014 Zostivax [id number] 86544 Given 12/08/2012 Tetanus And Diptheria Adult Preservative Free >7Yrs Vital Signs Date Vital Result Comment 08/21/2018 8:46am BP Systolic 120 mmHg BP Diastolic 80 mmHg Heart Rate 66 /min Body Temperature 97.5 F Height 64.75 inches 5'4.75" Weight 152.00 lb BMI (Body Mass Index) 25.5 kg/m2 05/23/2018 1:59pm BP Systolic 120 mmHg BP Diastolic 88 mmHg Heart Rate 72 /min Body Temperature 98.2 F Respiratory Rate 18 /min Height 64.75 inches 5'4.75" Weight 151.00 lb BMI (Body Mass Index) 25.3 kg/m2 03/22/2018 9:20am BP Systolic 118 mmHg BP Diastolic 60 mmHg Heart Rate 60 /min Body Temperature 97.9 F Respiratory Rate 16 /min Height 64.75 inches 5'4.75" Weight 152.00 lb BMI (Body Mass Index) 25.5 kg/m2 02/28/2018 9:52am BP Systolic 120 mmHg BP Diastolic 72 mmHg Heart Rate 100 /min Body Temperature 97.3 F Respiratory Rate 22 /min O2 % BldC Oximetry 98 % on Ra Weight 152.50 lb 02/17/2018 11:17am BP Systolic 108 mmHg BP Diastolic 60 mmHg Heart Rate 64 /min Body Temperature 98.2 F Respiratory Rate 16 /min O2 % BldC Oximetry 97 % Ra Height 67 inches 5'7" Weight 145.00 lb BMI (Body Mass Index) 22.7 kg/m2 11/28/2017 3:15pm BP Systolic 118 mmHg BP Diastolic 74 mmHg Heart Rate 60 /min Body Temperature 97.9 F Respiratory Rate 15 /min Height 67 inches 5'7" Weight 149.00 lb BMI (Body Mass Index) 23.3 kg/m2 09/19/2017 11:00am BP Systolic 100 mmHg BP Diastolic 62 mmHg Heart Rate 74 /min Body Temperature 98.0 F Respiratory Rate 16 /min Height 67 inches 5'7" Weight 157.38 lb BMI (Body Mass Index) 24.6 kg/m2 09/05/2017 8:37am BP Systolic 110 mmHg BP Diastolic 82 mmHg Heart Rate 72 /min Body Temperature 98.1 F Respiratory Rate 16 /min Height 67 inches 5'7" Weight 158.00 lb BMI (Body Mass Index) 24.7 kg/m2 03/05/2017 9:12am BP Systolic 120 mmHg BP Diastolic 70 mmHg Heart Rate 72 /min Body Temperature 97.9 F Respiratory Rate 16 /min Height 67 inches 5'7" Weight 157.00 lb BMI (Body Mass Index) 24.6 kg/m2 01/25/2017 4:34pm BP Systolic 120 mmHg BP Diastolic 80 mmHg Heart Rate 66 /min Body Temperature 98.4 F Respiratory Rate 16 /min Height 67 inches 5'7" Weight 156.12 lb BMI (Body Mass Index) 24.4 kg/m2 10/05/2016 11:16am BP Systolic 118 mmHg BP Diastolic 82 mmHg Heart Rate 72 /min Body Temperature 97.7 F Height 67 inches 5'7" Weight 152.00 lb BMI (Body Mass Index) 23.8 kg/m2 07/12/2016 2:34pm BP Systolic 102 mmHg BP Diastolic 70 mmHg Heart Rate 72 /min Body Temperature 97.9 F Height 67 inches 5'7" Weight 153.12 lb BMI (Body Mass Index) 24.0 kg/m2 03/02/2016 1:28pm BP Systolic 120 mmHg BP Diastolic 80 mmHg Heart Rate 64 /min Body Temperature 97.8 F Height 67 inches 5'7" Weight 148.00 lb BMI (Body Mass Index) 23.2 kg/m2 02/04/2016 11:42am BP Systolic 110 mmHg BP Diastolic 70 mmHg Heart Rate 80 /min Body Temperature 98.0 F Respiratory Rate 18 /min Weight 147.00 lb 01/21/2016 9:14am BP Systolic 124 mmHg BP Diastolic 62 mmHg Heart Rate 68 /min Body Temperature 98.6 F Respiratory Rate 16 /min Height 67 inches 5'7" Weight 146.12 lb BMI (Body Mass Index) 22.9 kg/m2 09/15/2015 9:52am BP Systolic 120 mmHg BP Diastolic 70 mmHg Heart Rate 60 /min Body Temperature 98.7 F Respiratory Rate 16 /min Height 67 inches 5'7" Weight 144.00 lb BMI (Body Mass Index) 22.6 kg/m2 08/10/2015 9:21am BP Systolic 120 mmHg BP Diastolic 66 mmHg Heart Rate 60 /min Body Temperature 97.2 F Respiratory Rate 16 /min Height 67 inches 5'7" Weight 142.12 lb BMI (Body Mass Index) 22.3 kg/m2 04/26/2015 11:29am BP Systolic 120 mmHg BP Diastolic 76 mmHg Heart Rate 64 /min Body Temperature 98.9 F Height 67 inches 5'7" Weight 145.00 lb BMI (Body Mass Index) 22.7 kg/m2 04/05/2015 10:35am BP Systolic 110 mmHg BP Diastolic 60 mmHg Heart Rate 60 /min Body Temperature 97.7 F Respiratory Rate 12 /min Height 67 inches 5'7" Weight 144.00 lb BMI (Body Mass Index) 22.6 kg/m2 01/24/2015 8:35am BP Systolic 102 mmHg BP Diastolic 62 mmHg Heart Rate 68 /min Respiratory Rate 16 /min Height 67 inches 5'7" Weight 148.00 lb BMI (Body Mass Index) 23.2 kg/m2 12/17/2014 1:50pm BP Systolic 110 mmHg BP Diastolic 80 mmHg Heart Rate 76 /min Body Temperature 98.9 F Respiratory Rate 16 /min Height 67 inches 5'7" Weight 148.00 lb BMI (Body Mass Index) 23.2 kg/m2 12/02/2014 5:35pm BP Systolic 110 mmHg BP Diastolic 64 mmHg Heart Rate 64 /min Body Temperature 98.7 F Respiratory Rate 16 /min Height 67 inches 5'7" Weight 150.00 lb BMI (Body Mass Index) 23.5 kg/m2 11/18/2014 8:25am BP Systolic 110 mmHg BP Diastolic 62 mmHg Heart Rate 60 /min Body Temperature 98.9 F Respiratory Rate 16 /min Height 67 inches 5'7" Weight 150.00 lb BMI (Body Mass Index) 23.5 kg/m2 11/03/2014 10:50am BP Systolic 118 mmHg BP Diastolic 60 mmHg Heart Rate 90 /min Body Temperature 98.6 F Respiratory Rate 16 /min Height 67 inches 5'7" 10/27/2014 4:25pm BP Systolic 116 mmHg BP Diastolic 80 mmHg Heart Rate 68 /min Body Temperature 99.0 F Respiratory Rate 16 /min Height 67 inches 5'7" Weight 155.00 lb BMI (Body Mass Index) 24.3 kg/m2 03/22/2014 8:01am BP Systolic 126 mmHg BP Diastolic 70 mmHg Heart Rate 60 /min Body Temperature 97.5 F Respiratory Rate 18 /min Height 67 inches 5'7" Weight 159.00 lb BMI (Body Mass Index) 24.9 kg/m2 03/11/2013 7:30pm BP Systolic 120 mmHg BP Diastolic 80 mmHg Heart Rate 80 /min Body Temperature 98.1 F Respiratory Rate 16 /min Height 67 inches 5'7" Weight 160.00 lb BMI (Body Mass Index) 25.1 kg/m2 01/19/2013 8:41am BP Systolic 122 mmHg BP Diastolic 70 mmHg Heart Rate 60 /min Body Temperature 97.8 F Respiratory Rate 16 /min Height 67 inches 5'7" Weight 160.00 lb BMI (Body Mass Index) 25.1 kg/m2 12/10/2012 9:15am BP Systolic 120 mmHg BP Diastolic 66 mmHg Heart Rate 60 /min Body Temperature 98.6 F Respiratory Rate 16 /min Height 67 inches 5'7" Weight 161.00 lb BMI (Body Mass Index) 25.2 kg/m2 05/26/2012 8:07am BP Systolic 108 mmHg BP Diastolic 78 mmHg Heart Rate 68 /min Body Temperature 98.6 F Height 67 inches 5'7" Weight 165.00 lb BMI (Body Mass Index) 25.8 kg/m2 01/11/2012 11:09am BP Systolic 100 mmHg BP Diastolic 60 mmHg Heart Rate 60 /min Body Temperature 98.2 F Respiratory Rate 18 /min Height 67 inches 5'7" Weight 162.00 lb BMI (Body Mass Index) 25.4 kg/m2 11/19/2011 9:21am BP Systolic 102 mmHg BP Diastolic 72 mmHg Heart Rate 60 /min Body Temperature 98.6 F Height 67 inches 5'7" Weight 153.00 lb BMI (Body Mass Index) 24.0 kg/m2 07/31/2011 9:18am BP Systolic 122 mmHg BP Diastolic 92 mmHg Heart Rate 66 /min Height 67 inches 5'7" Weight 153.00 lb BMI (Body Mass Index) 24.0 kg/m2 07/20/2011 9:10am BP Systolic 120 mmHg BP Diastolic 82 mmHg Heart Rate 64 /min Body Temperature 98.0 F Height 67 inches 5'7" Weight 151.00 lb BMI (Body Mass Index) 23.6 kg/m2 05/16/2011 8:58am BP Systolic 106 mmHg BP Diastolic 72 mmHg Heart Rate 60 /min Body Temperature 97.4 F Height 67 inches 5'7" Weight 150.00 lb BMI (Body Mass Index) 23.5 kg/m2 01/08/2011 8:04am BP Systolic 118 mmHg BP Diastolic 78 mmHg Heart Rate 58 /min Body Temperature 96.5 F Height 67 inches 5'7" Weight 154.00 lb BMI (Body Mass Index) 24.1 kg/m2 11/24/2010 8:02am BP Systolic 94 mmHg BP Diastolic 60 mmHg Heart Rate 52 /min Height 67 inches 5'7" Weight 150.00 lb BMI (Body Mass Index) 23.5 kg/m2 10/13/2010 8:50am BP Systolic 100 mmHg BP Diastolic 60 mmHg Heart Rate 60 /min Body Temperature 96.5 F Respiratory Rate 16 /min Height 67 inches 5'7" Weight 155.00 lb BMI (Body Mass Index) 24.3 kg/m2 02/16/2009 4:13pm BP Systolic 100 mmHg BP Diastolic 60 mmHg Body Temperature 99.1 F Height 67 inches 5'7" Weight 145.00 lb BMI (Body Mass Index) 22.7 kg/m2 02/04/2009 11:48am BP Systolic 110 mmHg BP Diastolic 68 mmHg Heart Rate 56 /min Body Temperature 97.5 F O2 % BldC Oximetry 97 % Weight 144.00 lb 01/31/2009 11:07am BP Systolic 102 mmHg BP Diastolic 62 mmHg Heart Rate 68 /min Body Temperature 97.7 F Weight 162.00 lb 09/10/2007 7:42pm BP Systolic 104 mmHg BP Diastolic 60 mmHg Heart Rate 78 /min Respiratory Rate 13 /min Weight 162.00 lb 02/24/2007 3:10pm BP Systolic 118 mmHg BP Diastolic 60 mmHg Heart Rate 80 /min Body Temperature 99.5 F Respiratory Rate 14 /min 12/10/2006 3:16pm BP Systolic 100 mmHg BP Diastolic 60 mmHg Heart Rate 60 /min Body Temperature 98.9 F O2 % BldC Oximetry 100 % Weight 156.00 lb 12/01/2005 9:32am BP Systolic 100 mmHg BP Diastolic 60 mmHg Heart Rate 64 /min Body Temperature 98.1 F Weight 148.00 lb 11/27/2005 10:00am BP Systolic 90 mmHg BP Diastolic 70 mmHg Heart Rate 68 /min Body Temperature 98.5 F Weight 145.00 lb 02/14/2004 11:37am BP Systolic 90 mmHg BP Diastolic 50 mmHg Heart Rate 80 /min Body Temperature 99.6 F Weight 150.00 lb 11/16/2002 1:22pm BP Systolic 124 mmHg BP Diastolic 80 mmHg Heart Rate 68 /min Body Temperature 98.0 F Weight 146.00 lb 11/11/2002 9:57am BP Systolic 120 mmHg BP Diastolic 70 mmHg Heart Rate 68 /min Body Temperature 96.9 F Weight 148.00 lb 01/20/2002 1:37pm BP Systolic 124 mmHg BP Diastolic 64 mmHg Heart Rate 72 /min Weight 139.00 lb 12/30/2001 2:09pm BP Systolic 110 mmHg BP Diastolic 60 mmHg Heart Rate 72 /min Body Temperature 97.2 F Weight 138.00 lb 02/25/2001 1:07pm BP Systolic 104 mmHg BP Diastolic 60 mmHg Heart Rate 64 /min Body Temperature 98.7 F Weight 140.00 lb 02/07/2001 1:06pm BP Systolic 92 mmHg BP Diastolic 70 mmHg Heart Rate 76 /min Body Temperature 97.8 F Weight 144.00 lb 04/26/1999 6:50pm Body Temperature 96.4 F Weight 144.00 lb 02/15/1998 6:25pm BP Systolic 102 mmHg BP Diastolic 58 mmHg Body Temperature 98.0 F Weight 140.50 lb 12/15/1996 12:00am Body Temperature 98.7 F Weight 137.00 lb Results Test Date Facility Test Result H/L Range Note Comprehensive Metabolic 03/27/2018 Edu Cerr[facility]) Sodium 141 mEq/L 134-149 Prof Potassium 3.8 mEq/L 3.6-5.5 Chloride 108 mEq/L 94-112 Carbon Dioxide 31 mEq/L 21-32 Glucose 93 mg/dL 70-105 BUN 19 mg/dL 6-26 Creatinine 0.8 mg/dL 0.6-1.4 BUN/Creat Ratio 23.8 CALC 8.0-36.0 Calcium 9.1 mg/dL 8.6-10.2 Total Protein 6.5 g/dL 6.4-8.3 Albumin 4.2 g/dL 3.8-5.5 Globulin 2.3 g/dL 2.0-4.8 A/G Ratio 1.8 CALC 0.6-2.3 Alk. Phosphatase 82 U/L 30-110 Alt (SGPT) 10 U/L 7-35 Ast (Sgot) 12 U/L 5-34 Total Bilirubin 0.8 mg/dL 0.2-1.3 GFR Non- >60 ml/min/1.73m^ >=60 GFR >60 ml/min/1.73m^ >=60 Lipid Profile 03/27/2018 Edu Cerrato([facility]) Cholesterol 177 mg/dL 120- 200 Triglycerides 115 mg/dL 30-200 HDL Cholesterol 56 mg/dL 30-85 LDL (Calculated) 98 CALC 0-129 VLDL Cholesterol 23 mg/dL 0-50 HDL Risk Factor 3.2 CALC 0.0-4.4 Laboratory test finding 03/27/2018 Edu Cerrato([facility]) TSH 3.10 mIU/L 0.50-6.00 Free T4 1.64 ng/dL High 0.75-1.54 1 CBC Electronic a 03/27/2018 Edu Cerrato([facility]) WBC 8.0 x10^3/UL 4.0- 10.0 RBC 4.49 x10^6/UL 3.93-6.00 HGB 13.7 g/dL 12.0-17.0 HCT 42 % 35-50 MCV 92.4 fL 80.0-95.0 MCH 30.5 pg 25.6-32.2 MCHC 33.0 g/dL 32.2-36.0 RDW-CV 12.7 % 11.6-14.4 PLT 284 x10^3/UL 163-400 MPV 10.1 fL 9.4-12.4 Irma# 5.80 x10^3/UL 1.56-6.13 Lymph# 1.45 x10^3/UL 1.18-3.74 Edwards# 0.42 x10^3/UL 0.24-0.82 Eos # 0.2 x10^3/UL 0.0-0.5 Baso # 0.05 x10^3/UL 0.01-0.08 Irma% 73.0 % High 34.0-70.0 Lymph % 18.2 % Low 20.0-52.0 Edwards% 5.3 % 5.0-12.0 Eos% 2.8 % 0.7-7.0 Baso% 0.6 % 0.1-1.2 CBC Electronic (a New) 11/28/2017 [facility] WBC 9.63 4.0-10.0 (607)- - RBC 4.68 3.93-6.0 Hemoglobin (Fma/CMC/CTX) 14.3 g/dL 12.0-17.0 Hematocrit (Fma/CMC/CTX) 41.5 % 35.0-50.0 Mean Corpuscular Vol 88.7 fL 80-95 Mean Corpuscular Hemoglobin 30.6 pg 25.6-32.2 Mean Corpuscular Hemo Concen 34.5 g/dL 32.2-36.0 Platelets 300 10^3/ul 163-400 RDW-CV 13.2 11.6-14.4 Mean Platelet Volume 9.1 fL 8.0-12.4 Absolute Neutrophils BLD 6.91 High 1.56-6.13 Absolute Lymphocytes 1.88 1.18-3.74 Absolute Monocytes BLD Auto 0.55 0.24-0.82 Absolute Eos Blood 0.19 0.04-0.54 Absolute Basophils 0.08 0.01-0.08 Neutrophil % 71.8 % High 34.0-70.0 Lymph% 19.5 % Low 20.0-52.0 Monocytes % 5.7 % 5.0-12.0 Eos % 2.0 % 0.7-7.0 Basophil% 0.8 % 0-1.2 Comprehensive Metabolic 11/28/2017 Edu Da([facility]) Sodium 139 mEq/L 134-149 Prof Potassium 3.9 mEq/L 3.6-5.5 Chloride 101 mEq/L 94-112 Carbon Dioxide 26 mEq/L 21-32 Glucose 104 mg/dL 70-105 BUN 22 mg/dL 6-26 Creatinine 0.8 mg/dL 0.6-1.4 BUN/Creat Ratio 27.5 CALC 8.0-36.0 Calcium 9.7 mg/dL 8.6-10.2 Total Protein 6.6 g/dL 6.4-8.3 Albumin 4.5 g/dL 3.8-5.5 Globulin 2.1 g/dL 2.0-4.8 A/G Ratio 2.1 CALC 0.6-2.3 Alk. Phosphatase 83 U/L 30-110 Alt (SGPT) 14 U/L 7-35 Ast (Sgot) 14 U/L 5-34 Total Bilirubin 1.0 mg/dL 0.2-1.3 GFR Non- >60 ml/min/1.73m^ >=60 GFR >60 ml/min/1.73m^ >=60 Laboratory test 11/28/2017 Edu Da([facility]) Amylase, Serum 23 U/L 20- 105 finding CBC Auto Diff 08/18/2017 [facility] White Blood 8.1 N 3.5-10.8 Count 10^3/uL Red Blood Count 4.70 10^6/uL N 4.0-5.4 Hemoglobin 14.3 g/dL N 12.0-16.0 Hematocrit 42 % N 35-47 Mean Corpuscular Volume 89 fL N 80-97 Mean Corpuscular Hemoglobin 30 pg N 27-31 Mean Corpuscular HGB Conc 34 g/dL N 31-36 Red Cell Distribution Width 14 % N 10.5-15 Platelet Count 264 10^3/uL N 150-450 Mean Platelet Volume 7.6 um3 N 7.4-10.4 Abs Neutrophils 5.7 10^3/uL N 1.5-7.7 Abs Lymphocytes 1.8 10^3/uL N 1.0-4.8 Abs Monocytes 0.4 10^3/uL N 0-0.8 Abs Eosinophils 0.2 10^3/uL N 0-0.6 Abs Basophils 0.1 10^3/uL N 0-0.2 Abs Nucleated RBC 0 10^3/uL Granulocyte % 70.4 % N 38-83 Lymphocyte % 21.7 % Low 25-47 Monocyte % 4.4 % N 0-7 Eosinophil % 2.4 % N 0-6 Basophil % 1.1 % N 0-2 Nucleated Red Blood Cells % 0 Comp Metabolic Panel 08/18/2017 [facility] Sodium 140 mmol/L N 139-145 Potassium 3.5 mmol/L N 3.5-5.0 Chloride 103 mmol/L N 101-111 Co2 Carbon Dioxide 30 mmol/L N 22-32 Anion Gap 7 mmol/L N 2-11 Glucose 93 mg/dL N 70-100 Blood Urea Nitrogen 11 mg/dL N 6-24 Creatinine 0.83 mg/dL N 0.51-0.95 BUN/Creatinine Ratio 13.3 N 8-20 Calcium 9.3 mg/dL N 8.6-10.3 Total Protein 7.1 g/dL N 6.4-8.9 Albumin 4.1 g/dL N 3.2-5.2 Globulin 3.0 g/dL N 2-4 Albumin/Globulin Ratio 1.4 N 1-3 Total Bilirubin 0.90 mg/dL N 0.2-1.0 Alkaline Phosphatase 81 U/L N 34-104 Alt 14 U/L N 7-52 Ast 15 U/L N 13-39 Egfr Non- 69.4 >60 Egfr 89.3 >60 2 Urinalysis Profile 08/18/2017 [facility] Urine Color Yellow Urine Appearance Clear Urine Specific Heath 1.010 N 1.010-1.030 Urine pH 5.0 N 5-9 Urine Urobilinogen Negative Negative Urine Ketones Negative Negative Urine Protein Negative Negative Urine Leukocytes Negative Negative Urine Blood 1+ Abnormal Negative Urine Nitrite Negative Negative Urine Bilirubin Negative Negative Urine Glucose Negative Negative Urine White Blood Cell Trace(0-5/hpf) Absent Urine Red Blood Cell Trace(0-2/hpf) Absent Urine Bacteria Absent Absent Urine Squamous Epithelial Cell Present Abnormal Absent Urine Culture And 08/18/2017 [facility] Urine Culture SEE RESULT 3 Sensitivities BELOW Ua - Non Micro (a) 03/05/2017 [facility] Medicine Appearance YELLOW (607)- - Color CLEAR Glucose, Urine (a/CMC/CTX) NEG Bilirubin NEG Ketones NEG SP Grav <=1.005 Blood NEG PH 7.0 Protein NEG Urobil 0.2 Nitrite NEG Leukocytes (a/[facility]) NEG Complete Blood Count 03/05/2017 Edu Da([facility]) WBC 7.8 x10^3/UL 3.6 -9.6 RBC 4.72 x10^6/UL 3.90-5.70 HGB 14.2 g/dL 12.1-17.2 HCT 42 % 36-50 MCV 89.0 fL 82.2-97.4 MCH 30.1 pg 27.6-33.3 MCHC 33.9 g/dL 33.0-35.5 RDW 14.1 % High 11.6-13.7 PLT 307 x10^3/UL 150-400 MPV 7.0 fL Low 7.4-10.4 Gran # 5.7 x10^3/UL 1.5-7.2 Lymph# 1.7 x10^3/UL 0.7-4.9 Edwards# 0.4 x10^3/UL 0.1-0.9 Gran % 72.5 % 42.2-75.2 Lymph % 22.1 % 20.5-51.1 Edwards% 5.4 % 1.7-9.3 Comprehensive Metabolic 03/05/2017 Edu Da([facility]) Sodium 141 mEq/L 134-149 Prof Potassium 4.4 mEq/L 3.6-5.5 Chloride 104 mEq/L 94-112 Carbon Dioxide 26 mEq/L 21-32 Glucose 109 mg/dL High 70-105 BUN 8 mg/dL 6-26 Creatinine 0.8 mg/dL 0.6-1.4 BUN/Creat Ratio 10.0 CALC 8.0-36.0 Calcium 9.6 mg/dL 8.6-10.2 Total Protein 6.8 g/dL 6.4-8.3 Albumin 4.3 g/dL 3.8-5.5 Globulin 2.5 g/dL 2.0-4.8 A/G Ratio 1.7 CALC 0.6-2.3 Alk. Phosphatase 76 U/L 30-110 Alt (SGPT) 13 U/L 7-35 Ast (Sgot) 17 U/L 5-34 Total Bilirubin 1.0 mg/dL 0.2-1.3 GFR Non- >60 ml/min/1.73m^ >=60 GFR >60 ml/min/1.73m^ >=60 Lipid Profile 03/05/2017 Edu Da(a) Cholesterol 188 mg/dL 120- 200 Triglycerides 111 mg/dL 30-200 HDL Cholesterol 62 mg/dL 30-85 LDL (Calculated) 104 CALC 0-129 VLDL Cholesterol 22 mg/dL 0-50 HDL Risk Factor 3.0 CALC 0.0-4.4 Laboratory test finding 03/05/2017 Edu Cerrato(a) TSH 2.96 mIU/L 0.50-6.00 Free T4 1.50 ng/dL 0.75-1.54 Vitamin D25 48 30-100 Laboratory test 07/12/2016 [facility] Quickstrep neg Negative finding (607)- - Complete Blood Count 03/02/2016 Edu Cerrato(fma) WBC 7.1 x10^3/UL 3.6 -9.6 RBC 4.54 x10^6/UL 3.90-5.70 HGB 13.8 g/dL 12.1-17.2 HCT 41 % 36-50 MCV 90.0 fL 82.2-97.4 MCH 30.4 pg 27.6-33.3 MCHC 33.9 g/dL 33.0-35.5 RDW 14.6 % High 11.6-13.7 PLT 240 x10^3/UL 150-400 MPV 6.4 fL Low 7.4-10.4 Gran # 4.9 x10^3/UL 1.5-7.2 Lymph# 1.9 x10^3/UL 0.7-4.9 Edwards# 0.3 x10^3/UL 0.1-0.9 Gran % 67.7 % 42.2-75.2 Lymph % 27.5 % 20.5-51.1 Edwards% 4.8 % 1.7-9.3 Comprehensive Metabolic 03/02/2016 Edu Da(fma) Sodium 137 mEq/L 134-149 Prof Potassium 3.6 mEq/L 3.6-5.5 Chloride 97 mEq/L 94-112 Carbon Dioxide 27 mEq/L 21-32 Glucose 98 mg/dL 70-105 BUN 15 mg/dL 6-26 Creatinine 0.8 mg/dL 0.6-1.4 BUN/Creat Ratio 18.8 CALC 8.0-36.0 Calcium 9.7 mg/dL 8.6-10.2 Total Protein 7.0 g/dL 6.4-8.3 Albumin 4.4 g/dL 3.8-5.5 Globulin 2.6 g/dL 2.0-4.8 A/G Ratio 1.7 CALC 0.6-2.3 Alk. Phosphatase 73 U/L 30-110 Alt (SGPT) 11 U/L 7-35 Ast (Sgot) 16 U/L 5-34 Total Bilirubin 0.9 mg/dL 0.2-1.3 GFR Non- >60 ml/min/1.73m^ >=60 GFR >60 ml/min/1.73m^ >=60 Lipid Profile 03/02/2016 Edu Da(fma) Cholesterol 171 mg/dL 120- 200 Triglycerides 93 mg/dL 30-200 HDL Cholesterol 51 mg/dL 30-85 LDL (Calculated) 101 CALC 0-129 VLDL Cholesterol 19 mg/dL 0-50 HDL Risk Factor 3.4 CALC 0.0-4.4 Laboratory test finding 03/02/2016 Edu Da(fma) TSH 5.21 mIU/L 0.50-6.00 Free T4 1.11 ng/dL 0.75-1.54 Pap HPV High Risk 04/26/2015 [facility] Diagn See Comment: 4 [address] [place] [address] ([phone])- - Adeq See Comment: 5 [email or web address] See Comment: 6 Perfor See Comment: 7 Comm . Note See Comment: 8 Iglbp See Comment: 9 HPV, high-risk Negative Negative 10 Laboratory test 04/26/2015 [facility] PDF [id number] SEE IMAGE finding [address] [place] [address] (857)- - Laboratory test 03/24/2015 [facility] Surgical Pathology SEE RESULT 11, 12 finding BELOW Laboratory test 03/24/2015 [facility] Clotest SEE RESULT 13 finding BELOW Complete Blood 01/24/2015 Sorensen Da(fma) WBC 8.6 3.6-9 Count x10^3/UL .6 RBC 4.70 x10^6/UL 3.90-5.70 HGB 14.6 g/dL 12.1-17.2 HCT 42 % 36-50 MCV 90.0 fL 82.2-97.4 MCH 31.1 pg 27.6-33.3 MCHC 34.5 g/dL 33.0-35.5 RDW 14.6 % High 11.6-13.7 PLT 233 x10^3/UL 150-400 MPV 7.2 fL Low 7.4-10.4 Gran # 6.5 x10^3/UL 1.5-7.2 Lymph# 1.7 x10^3/UL 0.7-4.9 Edwards# 0.4 x10^3/UL 0.1-0.9 Gran % 74.7 % 42.2-75.2 Lymph % 20.4 % Low 20.5-51.1 Edwards% 4.9 % 1.7-9.3 Comprehensive Metabolic 01/24/2015 Sorensen Da(fma) Sodium 140 mEq/L 134-149 Prof Potassium 4.4 mEq/L 3.6-5.5 Chloride 101 mEq/L 94-112 Carbon Dioxide 26 mEq/L 21-32 Glucose 105 mg/dL 70-105 BUN 16 mg/dL 6-26 Creatinine 0.8 mg/dL 0.6-1.4 BUN/Creat Ratio 20.0 CALC 8.0-36.0 Calcium 9.9 mg/dL 8.6-10.2 Total Protein 7.6 g/dL 6.4-8.3 Albumin 4.4 g/dL 3.8-5.5 Globulin 3.2 g/dL 2.0-4.8 A/G Ratio 1.4 CALC 0.6-2.3 Alk. Phosphatase 77 U/L 30-110 Alt (SGPT) 14 U/L 7-35 Ast (Sgot) 16 U/L 5-34 Total Bilirubin 0.6 mg/dL 0.2-1.3 GFR Non- >60 ml/min/1.73m^ >=60 GFR >60 ml/min/1.73m^ >=60 Laboratory test finding 01/24/2015 Sorensen Da([facility]) Vitamin D25 41 30 -100 14 Ua - Micro ([facility]) 01/24/2015 [facility] Appearance CLEAR (607)- - Color YELLOW Glucose, Urine (Fma/CMC/CTX) NEG Bilirubin NEG Ketones NEG SP Grav 1.015 Blood NEG PH 5.5 Protein NEG Urobil 0.2 Nitrite NEG Leukocytes (Fma/CMC/[facility]) NEG Hyaline - /Lpf Granular - /Lpf WBC (Fma,[facility]) 2-3 # RBC 2-3 # Mucus (Fma/CBC/[facility]) - /Lpf Epith RARE /Lpf # Bacteria TRACE /Hpf # Amorphous (Fma/CMC/[facility]) - /Lpf Crystals, Fluid (Fma/CMC/CTX) - Z#Comments - Ua - Micro ([facility]) 12/17/2014 [facility] Appearance CLEAR (607)- - Color YELLOW Glucose, Urine (Fma/CMC/CTX) NEG Bilirubin NEG Ketones NEG SP Grav 1.010 Blood NEG PH 5.5 Protein NEG Urobil 0.2 Nitrite NEG Leukocytes (Fma/CMC/[facility]) NEG Hyaline - /Lpf Granular - /Lpf WBC (a,[facility]) 0-1 # RBC - Mucus - /Lpf Epith RARE /Lpf # Bacteria - /Hpf Amorphous - /Lpf Crystals, Fluid (Fma/CMC/CTX) - Z#Comments - Laboratory test 12/14/2014 [facility] Urine Culture And SEE RESULT 15 finding Sensitivities BELOW CBC Auto Diff 12/14/2014 [facility] White Blood Count 9.7 10^3/uL N 4.8-10.8 Red Blood Count 5.11 10^6/uL N 4.0-5.4 Hemoglobin 15.4 g/dL N 12.0-16.0 Hematocrit 46 % N 35-47 Mean Corpuscular Volume 90 fL N 80-97 Mean Corpuscular Hemoglobin 30 pg N 27-31 Mean Corpuscular HGB Conc 34 g/dL N 31-36 Red Cell Distribution Width 14 % N 10.5-15 Platelet Count 257 10^3/uL N 150-450 Mean Platelet Volume 8 um3 N 7.4-10.4 Abs Neutrophils 6.3 10^3/uL N 1.5-7.7 Abs Lymphocytes 2.4 10^3/uL N 1.0-4.8 Abs Monocytes 0.5 10^3/uL N 0-0.8 Abs Eosinophils 0.3 10^3/uL N 0-0.6 Abs Basophils 0.1 10^3/uL N 0-0.2 Abs Nucleated RBC 0.01 10^3/uL N Granulocyte % 65.3 % N 38-83 Lymphocyte % 25.0 % N 25-47 Monocyte % 5.3 % N 1-9 Eosinophil % 3.1 % N 0-6 Basophil % 1.3 % N 0-2 Nucleated Red Blood Cells % 0.1 N Comp Metabolic Panel 12/14/2014 [facility] Sodium 137 mmol/L N 133-145 Potassium 3.5 mmol/L N 3.5-5.0 Chloride 100 mmol/L Low 101-111 Co2 Carbon Dioxide 30 mmol/L N 22-32 Anion Gap 7 mmol/L N 2-11 Glucose 94 mg/dL N 70-100 Blood Urea Nitrogen 11 mg/dL N 6-24 Creatinine 0.86 mg/dL N 0.51-0.95 BUN/Creatinine Ratio 12.8 N 8-20 Calcium 10.0 mg/dL N 8.6-10.3 Total Protein 8.0 g/dL N 6.4-8.9 Albumin 4.8 g/dL N 3.2-5.2 Globulin 3.2 g/dL N 2-4 Albumin/Globulin Ratio 1.5 N 1-3 Total Bilirubin 1.00 mg/dL N 0.2-1.0 Alkaline Phosphatase 79 U/L N 34-104 Alt 10 U/L N 7-52 Ast 16 U/L N 13-39 Egfr Non- 67.3 N >60 Egfr 86.6 N >60 16 Urinalysis Profile 12/14/2014 [facility] Urine Color Yellow N Urine Appearance Clear N Urine Specific Heath 1.008 Low 1.010-1.030 Urine pH 6.0 N 5-9 Urine Urobilinogen Negative N Negative Urine Ketones Negative N Negative Urine Protein Negative N Negative Urine Leukocytes 1+ Abnormal Negative Urine Blood 1+ Abnormal Negative Urine Nitrite Negative N Negative Urine Bilirubin Negative N Negative Urine Glucose Negative N Negative Urine White Blood Cell 3+(>20/hpf) Abnormal Absent Urine Red Blood Cell Trace(0-2/hpf) N Absent Urine Bacteria Absent N Absent Ua - Micro (Fma) 12/02/2014 [facility] Medicine Appearance CLEAR (607)- - Color YELLOW Glucose, Urine (Fma/CMC/CTX) NEG Bilirubin NEG Ketones NEG SP Grav 1.015 Blood NEG PH 6.0 Protein NEG Urobil 0.2 Nitrite NEG Leukocytes (Fma/CMC/[facility]) NEG Hyaline - /Lpf Granular - /Lpf WBC (Fma,[facility]) 0-1 # RBC 0-1 # Mucus - /Lpf Epith RARE /Lpf # Bacteria - /Hpf Amorphous - /Lpf Crystals, Fluid (Fma/CMC/CTX) - Z#Comments - Laboratory test 12/02/2014 [facility] Urine Culture No significant g [address] [facility] <SEE NOTE> [place] [address] [phone] Ua - Micro (a) 11/18/2014 [facility] Medicine Appearance clear (607)- - Color yellow Glucose, Urine (Fma/CMC/CTX) - Bilirubin - Ketones - SP Grav 1.020 Blood small PH 5.5 Protein - Urobil 0.2 Nitrite - Leukocytes (Fma/CMC/[facility]) trace Hyaline - /Lpf Granular - /Lpf WBC (Fma,[facility]) 0-1 RBC 2-3 Mucus - /Lpf Epith rare /Lpf Bacteria rare /Hpf Amorphous - /Lpf Crystals, Fluid (Fma/CMC/CTX) - Z#Comments - Complete Blood Count 11/18/2014 Sorensen Da(a) WBC 7.4 x10^3/UL 3.6 -9.6 RBC 4.70 x10^6/UL 3.90-5.70 HGB 14.6 g/dL 12.1-17.2 HCT 42 % 36-50 MCV 90.0 fL 82.2-97.4 MCH 31.0 pg 27.6-33.3 MCHC 34.5 g/dL 33.0-35.5 RDW 13.9 % High 11.6-13.7 PLT 265 x10^3/UL 150-400 MPV 7.6 fL 7.4-10.4 Gran # 5.6 x10^3/UL 1.5-7.2 Lymph# 1.4 x10^3/UL 0.7-4.9 Edwards# 0.4 x10^3/UL 0.1-0.9 Gran % 74.7 % 42.2-75.2 Lymph % 19.7 % Low 20.5-51.1 Edwards% 5.6 % 1.7-9.3 Comprehensive Metabolic 11/18/2014 Edu Cerrato([facility]) Sodium 135 mEq/L 134-149 Prof Potassium 4.0 mEq/L 3.6-5.5 Chloride 100 mEq/L 94-112 Carbon Dioxide 29 mEq/L 21-32 Glucose 95 mg/dL 70-105 BUN 16 mg/dL 6-26 Creatinine 0.8 mg/dL 0.6-1.4 BUN/Creat Ratio 20.0 CALC 8.0-36.0 Calcium 9.3 mg/dL 8.6-10.2 Total Protein 6.9 g/dL 6.4-8.3 Albumin 4.3 g/dL 3.8-5.5 Globulin 2.6 g/dL 2.0-4.8 A/G Ratio 1.7 CALC 0.6-2.3 Alk. Phosphatase 64 U/L 30-110 Alt (SGPT) 9 U/L 7-35 Ast (Sgot) 14 U/L 5-34 Total Bilirubin 0.9 mg/dL 0.2-1.3 Lipid Profile 11/18/2014 Edu Cerrato(a) Cholesterol 234 mg/dL High 120-200 Triglycerides 159 mg/dL 30-200 HDL Cholesterol 49 mg/dL 30-85 LDL (Calculated) 153 CALC High 0-129 VLDL Cholesterol 32 mg/dL 0-50 HDL Risk Factor 4.8 CALC High 0.0-4.4 Laboratory test finding 11/18/2014 Edu Cerrato(fma) TSH 2.99 mIU/L 0.50-6.00 18 Free T4 1.33 ng/dL 0.75-1.54 Vitamin B-12 319 pg/mL 230-1050 Folate Level 4.61 ng/mL 3.00-16.00 Vitamin D25 13 Low 30-100 Urine Culture And 08/17/2014 [facility] Urine Culture (SEE NOTE) 19 Sensitivities Laboratory test 03/22/2014 Edu Da(a) TSH 5.89 mIU/L 0.50-6. finding 00 Free T4 1.20 ng/dL 0.75-1.54 Lipid Profile 03/22/2014 Edu Da(a) Cholesterol 228 mg/dL High 120-200 Triglycerides 134 mg/dL 30-200 HDL Cholesterol 49 mg/dL 30-85 LDL (Calculated) 152 CALC High 0-129 VLDL Cholesterol 27 mg/dL 0-50 HDL Risk Factor 4.7 CALC High 0.0-4.4 Comprehensive Metabolic 03/22/2014 Edu Da(a) Sodium 141 mEq/L 134-149 Prof Potassium 3.8 mEq/L 3.6-5.5 Chloride 101 mEq/L 94-112 Carbon Dioxide 28 mEq/L 21-32 Glucose 97 mg/dL 70-105 BUN 14 mg/dL 6-26 Creatinine 0.7 mg/dL 0.6-1.4 BUN/Creat Ratio 20.0 CALC 8.0-36.0 Calcium 9.1 mg/dL 8.6-10.2 Total Protein 6.4 g/dL 6.4-8.3 Albumin 4.0 g/dL 3.8-5.5 Globulin 2.4 g/dL 2.0-4.8 A/G Ratio 1.7 CALC 0.6-2.3 Alk. Phosphatase 72 U/L 30-110 Alt (SGPT) 8 U/L 7-35 Ast (Sgot) 12 U/L 5-34 Total Bilirubin 0.7 mg/dL 0.2-1.3 Ua - Micro (a) 03/11/2013 [facility] Appearance clear (607)- - Color yellow Glucose - Bilirubin - Ketones - SP Grav 1.010 Blood large # PH 7.0 Protein - Urobil 0.2 Nitrite - Leukocytes (Fma/CMC/[facility]) small # Hyaline - /Lpf Granular - /Lpf WBC (Fma,[facility]) 20-30 # RBC 50-70 # Mucus - /Lpf Epith - /Lpf Bacteria 1+ /Hpf # Amorphous - /Lpf Crystals, Fluid (Fma/CMC/CTX) - Z#Comments - CBC Electronic ([facility]) 01/19/2013 [facility] WBC 9.0 3.6-9.6 (607)- - RBC 4.35 3.90-5.70 Hemoglobin (Fma/CMC/CTX) 13.3 g/dL 12.1 - 17.2 Hematocrit (Fma/CMC/CTX) 39.3 % 36.1 - 50.3 Platelets 279 10^3/ul 150-400 Lymph% 17.0 Low 20.5-51.1 Mixed% 5.0 Neutrophils % 78.0 Mean Corpuscular Vol 90 82.2-97.4 Mean Corpuscular Hemoglobin 30.7 27.6-33.3 Mean Corpuscular Hemo Concen 34.0 32.0-36.0 RDW 12.1 11.6-13.7 Mean Platelet Volume 7.2 6.5-11.0 Laboratory test finding 01/19/2013 Sorensen Da([facility]) TSH 2.67 mIU/L 0.50-6.00 Free T4 1.22 ng/dL 0.75-1.54 Comprehensive Metabolic 01/19/2013 Sorensen Da([facility]) Albumin 4.7 g/dL 3.8-5.5 Prof Alk. Phos. 88 U/L 30-110 Alt (SGPT) 8 U/L 7-35 Ast (Sgot) 15 U/L 5-34 BUN 17 mg/dL 6-26 Calcium 9.4 mg/dL 8.6-10.2 Chloride 104 mEq/L 94-112 Creatinine 0.9 mg/dL 0.6-1.4 Carbon Dioxide 27 mEq/L 21-32 Glucose 105 mg/dL 70-105 Sodium 138 mEq/L 134-149 Total Bilirubin 0.9 mg/dL 0.2-1.3 Total Protein 7.4 g/dL 6.3-8.1 Potassium 4.0 mEq/L 3.6-5.5 Globulin 2.7 g/dL 2.0-4.8 A/G Ratio 1.8 Calc 0.6-2.3 BUN/Creat Ratio 18.6 Calc 8.0-36.0 Lipid Profile 01/19/2013 Sorensen Flora(fma) Cholesterol 248 mg/dL High 120-200 HDL 48 mg/dL 30-85 Triglycerides 155 mg/dL 30-200 HDL Risk Factor 5.1 CALC High 0.0-4.4 LDL (Calculated) 168 CALC High 0-129 VLDL (Calculated) 31 mg/dL 0-50 Laboratory test 01/19/2013 Sorensen Flora(a) B12 309 pg/mL 230-1050 finding Protein Elect 01/19/2013 [facility] Protein Elect SEE BELOW 20 Serum 28 [place] [id number] [phone] Graph Report TO FOLLOW Albumin 3.9 g/dL 3.2-5.6 Alpha 1 Globulin, Serum 0.3 g/dL 0.1-0.4 Alpha 2 Globulin, Serum 1.0 g/dL 0.4-1.2 Beta Globulin, Serum 1.1 g/dL 0.6-1.3 Gamma Globulin 1.2 g/dL 0.5-1.6 M-Cesario Gamma NOT OBSERVED g/dL Not Observed M-Cesario Beta NOT OBSERVED g/dL Not Observed Globulin,Total 3.6 g/dL 2.0-4.5 A/G Ratio 1.1 0.7-2.0 Protein, Total 7.4 g/dL 6.4-8.3 Interpretation, Serum SEE COMMENT 21 Surgical Pathology 06/05/2012 [facility] S RUN DATE: <SEE NOTE> Laboratory test 01/11/2012 Sorensen Flora(a) TSH 2.68 mIU/L 0.50-6.00 finding Basic Metabolic 01/11/2012 Sorensen Flora(a) BUN 10 mg/dL 6-26 Profile Calcium 9.5 mg/dL 8.6-10.2 Chloride 100 mEq/L 94-112 Creatinine 0.8 mg/dL 0.6-1.4 Carbon Dioxide 28 mEq/L 21-32 Glucose 92 mg/dL 70-105 Sodium 140 mEq/L 134-149 Potassium 3.8 mEq/L 3.6-5.5 BUN/Creat Ratio 13.0 Calc 8.0-36.0 Laboratory test finding 07/20/2011 Edu Da(a) TSH 3.28 mIU/L 0.50-6.00 23 Free T4 1.12 ng/dL 0.75-1.54 Laboratory test 01/08/2011 Edu Cerrato([facility]) TSH 6.63 mIU/L High 0.50- 6.00 24 finding Free T4 1.02 ng/dL 0.75-1.54 Lipid Profile 01/08/2011 Edu Cerrato([facility]) Cholesterol 221 mg/dL High 120-200 HDL 52 mg/dL 30-85 Triglycerides 128 mg/dL 30-200 HDL Risk Factor 4.3 CALC High 0.0-4.0 LDL (Calculated) 143 CALC High 0-129 VLDL (Calculated) 26 mg/dL 0-50 Laboratory test 01/08/2011 [facility] Rheumatoid Arth 8.6 IU/mL 0.0-13.9 finding [address] [place] [address] [phone] Lyme Western 01/08/2011 [facility] IgG P93 Ab. Absent Blot Ser [address] [place] [address] [phone] IgG P66 Ab. Absent IgG P58 Ab. Absent IgG P45 Ab. Absent IgG P41 Ab. Absent IgG P39 Ab. Absent IgG P30 Ab. Absent IgG P28 Ab. Absent IgG P23 Ab. Absent IgG P18 Ab. Absent Lyme IgG WB Interp. Negative 25 IgM P41 Ab. Present Abnormal IgM P39 Ab. Absent IgM P23 Ab. Present Abnormal Lyme IgM WB Interp. Positive Abnormal 26 Laboratory test 11/24/2010 Edu Cerrato([facility]) TSH 40.49 mIU/L High 0.50- 6.00 27 finding Free T4 0.74 ng/dL Low 0.75-1.54 Lyme Igg/M 11/24/2010 [facility] Lyme IgG/IgM <0.91 index 0.00-0.90 28 W/RFX West [address] [place] [address] [phone] Lyme Disease Ab, Quant, IgM 1.12 index High 0.00-0.90 29 Lyme Ab IgM Interp., Eia Positive Abnormal Lyme Western Blot Ser 11/24/2010 [facility] IgG P93 Ab. Absent [address] [place] [address] [phone] IgG P66 Ab. Absent IgG P58 Ab. Absent IgG P45 Ab. Absent IgG P41 Ab. Absent IgG P39 Ab. Absent IgG P30 Ab. Absent IgG P28 Ab. Absent IgG P23 Ab. Absent IgG P18 Ab. Absent Lyme IgG WB Interp. Negative 30 IgM P41 Ab. Present Abnormal IgM P39 Ab. Absent IgM P23 Ab. Present Abnormal Lyme IgM WB Interp. Positive Abnormal 31 Laboratory test 10/13/2010 Sorensen Da(fma) TSH >50.00 mIU/L High 0.50 -6.00 finding Free T4 < 0.75 ng/dL Low 0.75-1.54 Free T3 1.02 pg/mL Low 2.00-4.90 Laboratory test finding 12/10/2006 [facility] Quickstrep NEGATIVE Negative (607)- - Throat - Beta Strep Fma NEGATIVE @ 48 HRS Laboratory test finding 11/25/2005 [facility] Labs CBC;CMP See Image Report Ua - Non Micro ([facility]) 01/03/2004 [facility] Color STRAW Appearance CLEAR SP Grav 1.002 Low 1.010-1.030 Esterase NEG Negative Nitrite NEG Negative Urobil NEG Negative Protein NEG Negative PH 7.0 5-9 Blood NEG Negative Ketones NEG Negative Bilirubin, Micro NEG Negative Glucose NEG Negative CBC Electronic ([facility]) 01/03/2004 [facility] WBC 6.9 CUMM 4.8-10.8 RBC 4.30 CUMM 4.2-5.4 Hemoglobin (a/[facility]/CTX) 13.6 g/dL 12.0-16.0 Hematocrit ([facility]/CTX) 39 % 35-47 Mean Corpuscular Vol 90 UM3 79-97 Mean Corpuscular Hemaglobin 32 pg High 27-31 Mean Corpuscular Hemo Concen 35 g/dL 32-36 RDW 14 10.5-15 Platelets 246 CUMM 150-450 Mean Platelet Volume 6.9 Low 7.4-10.4 Granulocytes 70.7 % 38-83 Lymphocytes 23.3 % 20-45 Monocytes 3.9 % 1-9 Eosinophil 1.9 0-6 Basophil% 0.2 0-2 Abs Lymphs 1.6 1.0-4.8 Abs Mononuclear 0.3 0-0.8 Abs Grans 4.9 1.5-7.7 Abs Eosinophils 0.1 0-0.6 Abs Basophils 0 0-0.2 Basic Metabolic ([facility]) 01/03/2004 [facility] Sodium 138 mmol/L 135-145 Potassium 3.8 mmol/L 3.5-5.0 Chloride 101 mmol/L 101-111 Co2 31.0 mmol/L 22-32 Anion Gap 6.0 mmol/L 2-11 Glucose, Serum (Fma/CMC/CTX) 92 mg/dL 70-105 BUN ([facility]ma/CMC/[facility]) 6 mg/dL 6-24 Creatinine (Fma/CMC/CTX) 0.8 mg/dL 0.5-1.4 BUN/Creatinin Ratio 7.5 Low 8-20 Calcium ([facility]ma/CMC/[facility]) 9.4 mg/dL 8.7-10.2 Ua - Non Micro ([facility]) 11/20/2001 [facility] Color STRAW Appearance CLEAR SP Grav 1.003 Low 1.010-1.030 Esterase NEG Negative Nitrite NEG Negative Urobil NEG Negative Protein NEG Negative PH 6.5 5-9 Blood NEG Negative Ketones NEG Negative Bilirubin, Micro NEG Negative Glucose NEG Negative Laboratory test finding 11/20/2001 [facility] Anisocytosis SLIGHT CBC With Manual Diff ([facility]) 11/20/2001 [facility] WBC 10.5 4.8-10.8 RBC 4.75 4.2-5.4 Hemoglobin 14.3 g/dL 12.0-16.0 Hematocrit 41 % 35-47 Mean Corpuscular Vol 87 79-97 Mean Corpuscular Hemaglobin 30 27-31 Mean Corpuscular Hemo Concen 35 32-36 RDW 13 10.5-15 Platelets 278 CUMM 150-450 Mean Platelet Volume 7.7 7.4-10.4 Poly From [facility] 72 38-83 Band 2 0-8 Lymph From [facility] 18 5-47 Edwards From [facility] 5 0-13 Eos From [facility] 3 0-6 Atypical Lymph - 0-6 Morphology - Basophils - Comp Metabolic ([facility]) 11/20/2001 [facility] Sodium 141 mmol/L 135-145 Potassium 4.0 3.5-5.0 Chloride 99 mmol/L 95-108 Co2 27.1 21-33 Glucose 78 mg/dL 70-105 BUN 9 6-22 Creatinine 0.6 mg/dL 0.5-1.4 BUN/Creatinin Ratio 15.0 8-20 Calcium 9.3 mg/dL 8.7-10.2 Total Protein 8.4 GM/DL High 6.2-8.1 Albumin 4.3 3.6-5.4 Globulin 4.1 High 2-4 Albumin / Globulin Ratio 1.0 1-3 Bilirubin, Total 0.5 mg/dL 0.1-1.0 Alkaline Phosphatase 89 U/L 30-110 Alt (SGPT) 9 1-40 Ast (Sgot) 13 1-34 1 RESULTS VERIFIED BY REPEAT ANALYSIS 2 Because ethnic data is not always readily available, this report includes an eGFR for both -Americans and non- Americans. The National Kidney Disease Education Program (NKDEP) does not endorse the use of the MDRD equation for patients that are not between the ages of 18 and 70, are , have extremes of body size, muscle mass, or nutritional status, or are non- or non-. According to the National Kidney Foundation, irrespective of diagnosis, the stage of the disease is based on the level of kidney function: Stage Description GFR(mL/min/1.73 m(2)) 1 Kidney damage with normal or decreased GFR 90 2 Kidney damage with mild decrease in GFR 60-89 3 Moderate decrease in GFR 30-59 4 Severe decrease in GFR 15-29 5 Kidney failure <15 (or dialysis) 3 SEE RESULT BELOW Name: KOTA DAWSON : [address]: Mikel Leigh MD Acct: [id number] Unit: [id number] AGE: 62 Location: ED Re08/18/17 SEX: F Status: DEP ER SPEC: [id number] MACI: 08/18/17-[address] [facility] [address]: Surinder ERVIN REQ: [id number] RECD: 08/18/17 STATUS: KAI ANSARI DR: Desmond Leigh MD _ SOURCE: URINE SPDESC: ORDERED: Urine Culture Procedure Result Reported Site Urine Culture Final 08/19/17- 1226 ML No growth of clinically significant organisms * ML - Main Lab . END OF REPORT DEPARTMENT OF PATHOLOGY, [address] [address] Jorge Philippe M.D. Director [facility] # [id number] 4 NEGATIVE FOR INTRAEPITHELIAL LESION AND MALIGNANCY. 5 Satisfactory for evaluation. Endocervical component may not be distinguished in cases of atrophy. 6 Z12.4 7 Tono Du, Risk Mgr (ASCP) 8 The Pap smear is a screening test designed to aid in the detection of premalignant and malignant conditions of the uterine cervix. It is not a diagnostic procedure and should not be used as the sole means of detecting cervical cancer. Both false-positive and false-negative reports do occur. 9 This liquid based ThinPrep(R) pap test was screened with the use of an image guided system. 10 This high-risk HPV test detects thirteen high-risk types (16/18/31/33/35/39/45/51/52/56/58/59/68) without differentiation. 11 SEE RESULT BELOW Name: KOTA DAWSON : [address]: Ravindra Blake MD Acct: [id number] Unit: [id number] AGE: 60 Location: END[facility] Re03/24/15 SEX: F Status: REG REF SPEC: [id number] MACI: 03/24/15- SUBM DR: Ravindra Blake MD REQ: [id number] RECD: 03/24/15 STATUS: CHI ANSARI DR: Desmond Gastelum MD _ ORDERED: LEVEL IV/4 FINAL DIAGNOSIS 1. Esophagus, random, biopsy: -- Benign squamous mucosa with no significant pathologic abnormalities. -- No columnar component present for evaluation. 2. Colon, cecum, biopsy: -- Tubular adenoma. -- No high grade dysplasia or malignancy. 3. Colon, at 60 cm, biopsy: -- Hyperplastic polyp. 4. Colon, at 25 cm, biopsy: -- Hyperplastic polyp. CLINICAL HISTORY Dysphagia, epigastric pain, screening POST-OPERATIVE DIAGNOSIS Esophagus, stomach, and duodenum - normal. Colonoscopy to terminal ileum - cecal polyp snare, polyp at 60 cm. snare cautery and at 25 cm. biopsy; 5 years GROSS DESCRIPTION 1. The specimen is received in formalin labeled, Random Esophageal Biopsies , and consists of a 0.6 x 0.3 x 0.1 cm aggregate of ardon white irregular soft tissue fragments, which is submitted entirely in one cassette. 2. The specimen is received in formalin labeled, Cecal Polyp, and consists of a 0.5 x 0.5 x 0.2 cm aggregate of cesar irregular to polypoid soft tissue fragments, which is submitted entirely in one cassette. CONTINUED ON NEXT PAGE * ML=Testing performed at Main Lab DEPARTMENT OF PATHOLOGY, [address] [place] [address] Jorge Philippe M.D. Director [facility] # [id number] RUN DATE: 03/25/15 [facility] LAB LIVE PAGE 2 Patient: KOTA DAWSON [id number] (Continued) GROSS DESCRIPTION (Continued) GROSS DESCRIPTION (Continued) 3. The specimen is received in formalin labeled, Polyp at 60 cm, and consists of a 0.9 x 0.9 x 0.2 cm aggregate of cesar-pink irregular soft tissue fragments, which is submitted entirely in one cassette. 4. The specimen is received in formalin labeled, Biopsy Polyp at 25 cm, and consists of a 0.3 x 0.2 x 0.2 cm cesar-pink polypoid soft tissue fragment, which is submitted entirely in one cassette. Signed (signature on file) Mickie Billingsley MD 08/04 1329 END OF REPORT * ML=Testing performed at Main Lab DEPARTMENT OF PATHOLOGY, [address] [place] [address] Jorge Philippe M.D. Director CLIA # [id number] 12 03/25/15 (SatMar 25) 03:34 PM DESMOND GASTELUM Colon polyps, 5 year follow up 13 SEE RESULT BELOW Name: KOTA DAWSON : [address]: Ravindra Blake MD Acct: [id number] Unit: [id number] AGE: 60 Location: [facility] Re03/24/15 SEX: F Status: REG REF SPEC: [id number] MACI: 03/24/[address] [facility] [address]: Ravindra Blake MD REQ: [id number] RECD: 03/24/15 STATUS: KAI ANSARI DR: Desmond Gastelum MD _ SOURCE: GAS ANTRUM SPDESC: ORDERED: Clotest Procedure Result Reported Site Clotest Final 03/25/15- 743 ML Clotest Negative * ML - MAIN LAB ([facility]) . END OF REPORT * ML=Testing performed at Main Lab DEPARTMENT OF PATHOLOGY, [address] [place] [address] Jorge Philippe M.D. Director [facility] # [id number] SEE RESULT BELOW Name: KOTA DAWSON : [address]: Janes Tsai MD Acct: [id number] Unit: [id number] AGE: 59 Location: ED Re12/14/14 SEX: F Status: DEP ER SPEC: [id number] MACI: 12/14/14-[address]: Yuni Amanda MD REQ: [id number] RECD: 12/14/14 STATUS: KAI ANSARI DR: Desmond Gastelum MD _ SOURCE: URINE SPDESC: ORDERED: Urine Culture Procedure Result Verified Site Urine Culture Final 12/17/14- 1059 ML Organism 1 NORMAL DA [place] Count 1-10,000 (Few) CFU/ML * ML - [facility] ([facility]) . END OF REPORT * ML=Testing performed at Main Lab DEPARTMENT OF PATHOLOGY, [facility] [employer] [place], [place] [address] Jorge Philippe M.D. Director [facility] # [id number] 16 Because ethnic data is not always readily available, this report includes an eGFR for both -Americans and non- Americans. The National Kidney Disease Education Program (NKDEP) does not endorse the use of the MDRD equation for patients that are not between the ages of 18 and 70, are , have extremes of body size, muscle mass, or nutritional status, or are non- or non-. According to the National Kidney Foundation, irrespective of diagnosis, the stage of the disease is based on the level of kidney function: Stage Description GFR(mL/min/1.73 m(2)) 1 Kidney damage with normal or decreased GFR 90 2 Kidney damage with mild decrease in GFR 60-89 3 Moderate decrease in GFR 30-59 4 Severe decrease in GFR 15-29 5 Kidney failure <15 (or dialysis) 17 No significant growth. 18 FASTING 19 RUN DATE: 08/19/14 [facility] LAB LIVE PAGE 1 RUN TIME: 30[address] [facility] [employer] [place], [place] [address] Specimen Inquiry Name: KOTA DAWSON : [address]: Yuni Amanda MD Acct: [id number] Unit: [id number] AGE: 59 Location: [facility] Re08/17/14 SEX: F Status: DEP ER SPEC: [id number] MACI: 08/17/[address] [facility] [address]: Yuni Amanda MD REQ: [id number] RECD: 08/17/14 STATUS: COMP OTHR DR: Ken Miranda MD _ SOURCE: URINE SPDESC: ORDERED: Urine Culture Procedure Result Verified Site Urine Culture Final 08/19/14- 1130 ML No Growth Day 2 (<1,000 CFU/mL) * ML - MAIN LAB ([facility]) . END OF REPORT * ML=Testing performed at Main Lab DEPARTMENT OF PATHOLOGY, [facility] [employer] [place] [address] Jorge Philippe M.D. Director [facility] # [id number] FASTING; 1SST Normal serum protein electrophoresis. 22 RUN DATE: 06/06/12 [facility] LAB LIVE PAGE 1 RUN TIME: [address] [facility] [employer] [place], [place] [address] Specimen Inquiry Name: KOTA DAWSON : [address]: Ken Miranda MD Acct: [id number] Unit: [id number] AGE: 57 Location: [facility] Re06/05/12 SEX: F Status: REG REF SPEC: [id number] MACI: 06/05/12- SUBM DR: Tomás Clinton MD REQ: [id number] RECD: 06/05/12 STATUS: CHI ANSARI DR: Ken Miranda MD _ ORDERED: LEVEL IV FINAL DIAGNOSIS Breast, left, ultrasound guided core biopsy: A. Benign fibroadenoma. B. No evidence of neoplasia identified. CLINICAL HISTORY Left breast mass, solid lesion. GROSS DESCRIPTION The specimen is received in formalin labelled Kota Dawson, Left Breast Biopsy, and consists of two fibrofatty cores measuring 1.6 x 0.7 x 0.2 cm. in aggregate. Submitted entirely, one cassette. Signed (signature on file) Jorge Philippe MD 1206 END OF REPORT * ML=Testing performed at Main Lab DEPARTMENT OF PATHOLOGY, [address] [address] Jorge Philippe M.D. Director [facility] Permit #[id number] 23 FASTING 24 result rekc'd 25 Positive: 5 of the following Borrelia-specific bands: 18,23,28,30,39,41,45,58, 66, and 93. Negative: No bands or banding patterns which do not meet positive criteria. 26 Note: An equivocal or positive EIA result followed by a negative Western Blot result is considered NEGATIVE. An equivocal or positive EIA result followed by a positive Western Blot is considered POSITIVE by the CDC. . Positive: 2 of the following bands: 23,39 or 41 Negative: No bands or banding patterns which do not meet positive criteria. Criteria for positivity are those recommended by CDC/ASTPHLD. p23=Osp C, t14=[id number] . Note: Sera from individuals with the following may cross react in the Lyme Western Blot assays: other spirochetal diseases (periodontal disease, leptospirosis, relapsing fever, yaws, and pinta); connective autoimmune (Rheumatoid Arthritis and Systemic Lupus Erythematosus and also individuals with Antinuclear Antibody); other infections (Kopperl Spotted Fever; Fuad-Jang Virus, and Cytomegalovirus). . . 27 FASTING 28 Negative <0.91 Equivocal 0.91 - 1.09 Positive >1.09 Note: The CDC currently advises that Western blot testing be performed following all equivocal or positive EIA results. Final diagnosis should include appropriate clinical findings and a positive EIA which is also positive by Western blot. 29 Negative <0.91 Equivocal 0.91 - 1.09 Positive >1.09 . Note: IgM levels may peak at 3-6 weeks post infection, then gradually decline. FDA currently advises that Western Blot testing be performed following all equivocal or positive EIA results. Final diagnosis should include appropriate clinical findings and a positive EIA which is also positive by Western Blot. 30 Positive: 5 of the following Borrelia-specific bands: 18,23,28,30,39,41,45,58, 66, and 93. Negative: No bands or banding patterns which do not meet positive criteria. 31 Note: An equivocal or positive EIA result followed by a negative Western Blot result is considered NEGATIVE. An equivocal or positive EIA result followed by a positive Western Blot is considered POSITIVE by the CDC. . Positive: 2 of the following bands: 23,39 or 41 Negative: No bands or banding patterns which do not meet positive criteria. Criteria for positivity are those recommended by CDC/ASTPHLD. p23=Osp C, k28=rzzunesbb . Note: Sera from individuals with the following may cross react in the Lyme Western Blot assays: other spirochetal diseases (periodontal disease, leptospirosis, relapsing fever, yaws, and pinta); connective autoimmune (Rheumatoid Arthritis and Systemic Lupus Erythematosus and also individuals with Antinuclear Antibody); other infections (Kopperl Spotted Fever; Fuad-Jang Virus, and Cytomegalovirus). . . Procedures Date Code Description Status 02/17/2018 45784 Pulse Oximetry Completed 03/05/2017 13738 Electrocardiogram Complete Completed 09/07/2016 [id number] Mammogram Completed 03/24/2015 [id number] Colonoscopy Completed 08/06/2014 [id number] Mammogram Completed 06/02/2012 16556254 Mammogram Completed 07/31/2011 76319 Destruction Of Flat Warts Or Molluscum Contagiosum, Completed Milia To 15 12/10/2006 71810 Pulse Oximetry Completed Encounters Type Date Location Provider Dx Diagnosis Office Visit 05/23/2018 Main Office CEASAR Paez J03.90 Acute tonsillitis, 2:15p unspecified Office Visit 03/22/2018 Main Office Desmond Gastelum M.D. Z00.01 Encounter for general 9:40a adult medical exam w abnormal findings Z12.31 Encntr screen mammogram for malignant neoplasm of breast E03.9 Hypothyroidism, unspecified E78.5 Hyperlipidemia, unspecified M79.602 Pain in left arm Z23 Encounter for immunization Office Visit 02/28/2018 10:15a Main Office Anna See M79.10 Myalgia, Duarte, ENVIRONMENTAL HEALTH OFFICER unspecified site L40.8 Other psoriasis Office Visit 02/17/2018 11:00a [facility] Abigail J15.9 Unspecified [place], bacterial Afnp-C pneumonia Office Visit 11/28/2017 2:40p Main Office Jeffery Quintero R10.84 Generalized ShallishAmira abdominal pain K58.1 Irritable bowel syndrome with constipation Office Visit 09/19/2017 11:20a Main Office Desmond Gastelum, M54.5 Low back pain M.D. Office Visit 09/05/2017 9:00a Main Office Desmond Gastelum M54.5 Low back pain M.D. Office Visit 03/05/2017 9:20a [facility] Desmond Gastelum, E78.5 Hyperlipidemia, M.D. unspecified E03.9 Hypothyroidism, unspecified E55.9 Vitamin D deficiency, unspecified R42 Dizziness and giddiness M54.2 Cervicalgia Z00.01 Encounter for general adult medical exam w abnormal findings B37.0 Candidal stomatitis R07.9 Chest pain, unspecified Z23 Encounter for immunization Office Visit 01/25/2017 4:30p [facility] Mickie Z23 Encounter for Gigi, CANAL STRUCTURE OPERATOR immunization M79.674 Pain in right toe(s) R23.3 Spontaneous ecchymoses Office Visit 10/05/2016 11:40a [facility] Desmond Gastelum M54.2 Cervicalgia M.D. Office Visit 07/12/2016 2:45p Main Office Mickie J02.9 Acute Gigi, CANAL STRUCTURE OPERATOR pharyngitis, unspecified R11.0 Nausea Office Visit 03/02/2016 1:40p [facility] Desmond Gastelum, Z00.00 Encntr for M.D. general adult medical exam w/o abnormal findings Z12.31 Encntr screen mammogram for malignant neoplasm of breast Z71.6 Tobacco abuse counseling F17.210 Nicotine dependence, cigarettes, uncomplicated E03.9 Hypothyroidism, unspecified E78.5 Hyperlipidemia, unspecified Z23 Encounter for immunization Office Visit 02/04/2016 Main Office Olivia Romero, B37.89 Other sites of 11:15a CANAL STRUCTURE OPERATOR candidiasis Office Visit 01/21/2016 Main Office Jeanette Pulido, J20.9 Acute bronchitis, 9:30a ENVIRONMENTAL HEALTH OFFICER unspecified Office Visit 09/15/2015 [facility] Shanice Francis, F17.210 Nicotine 10:00a Office Afnp-C dependence, cigarettes, uncomplicated Z71.6 Tobacco abuse counseling F34.1 Dysthymic disorder M54.31 Sciatica, right side Office Visit 08/10/2015 9:30a [facility] Shanice Francis, Z71.6 Tobacco abuse Afnp-C counseling F17.210 Nicotine dependence, cigarettes, uncomplicated F34.1 Dysthymic disorder Office Visit 04/26/2015 11:30a Main Office Desmond Gastelum, Z01.419 Encntr for flex o writer operator M.D. exam (general) (routine) w/o abn findings Office Visit 04/05/2015 10:50a Main Office Desmond Gastelum, R10.31 Right lower M.D. quadrant pain Office Visit 01/24/2015 9:00a [facility] Desmond Gastelum, R10.30 Lower abdominal M.D. pain, unspecified E55.9 Vitamin D deficiency, unspecified F17.210 Nicotine dependence, cigarettes, uncomplicated E03.8 Other specified hypothyroidism E78.2 Mixed hyperlipidemia Office Visit 12/17/2014 2:00p Main Office CEASAR Paez 789.09 Pain Abdominal Other Spec Site Office Visit 12/02/2014 7:10p Main Office Desmond Gastelum, 599.0 UTI Urinary Tract M.D. Infection Site Not Spec 112.0 Candidiasis Mouth 356.8 Neuropathy Other Spec Idiopathic Peripheral Office Visit 11/18/2014 8:50a Main Office Desmond Gastelum, V70.0 Examination General M.D. Medical Routine AT [facility] 244.9 Hypothyroidism Other Unspec 272.4 Hyperlipidemia Other Unspec 356.8 Neuropathy Other Spec Idiopathic Peripheral V05.8 Single Disease Spec Other Vaccination & Inoculation 305.1 Tobacco Use Disorder 268.9 Vitamin D Deficiency Unspec Office Visit 11/03/2014 11:00a [facility] Desmond Gastelum, 112.0 Candidiasis Mouth M.D. Office Visit 10/27/2014 4:40p [facility] Desmond Gastelum, 112.0 Candidiasis Mouth M.D. Office Visit 03/22/2014 8:10a Main Office Ken Tucker 244.9 Hypothyroidism Amanda Miranda M.D. Unspec 272.4 Hyperlipidemia Other Unspec Office Visit 03/11/2013 7:10p Main Office Ken Tucker 599.0 UTI Urinary Tract Amira Miranda Infection Site Not Spec Office Visit 01/19/2013 8:40a Main Office Ken Garcia.9 Hypothyroidism Amanda Miranda M.D. Unspec 780.79 Malaise And Fatigue Other 782.0 Skin Sensation Disturbance 272.4 Hyperlipidemia Other Unspec Office Visit 12/10/2012 9:00a Main Office Jeanette Pulido, ENVIRONMENTAL HEALTH OFFICER E906.3 Bite Other Animal Except Arthropod 913.9 Injury Superficial Elbow Forearm Wrist Other Unspec Infected 782.3 Edema Office Visit 05/26/2012 8:20a Main Office Ken Tucker 611.71 Mastodynia Amira Miranda Office Visit 01/11/2012 11:10a Main Office Ken Tucker 244.9 Hypothyroidism Amanda Miranda M.D. Unspec 784.0 Headache 782.3 Edema Office Visit 11/19/2011 9:10a Main Office Ken Tucker 782.1 Rash & Other Amira Miranda Nonspec Skin Eruption Office Visit 07/31/2011 9:20a [facility] Ken Tucker 078.10 Viral Warts Amira Miranda Unspec Office Visit 07/20/2011 9:10a Main Office Ken Tucker 782.1 Rash & Other Amira Miranda Nonspec Skin Eruption 244.9 Hypothyroidism Other Unspec 719.41 Pain Joint Shoulder Region Office Visit 05/16/2011 9:10a Main Office Ken Tucker 782.1 Rash & Other Nonspec Amira Miranda Skin Eruption Office Visit 01/08/2011 8:00a Main Office Ken Garcia.9 Hypothyroidism Amanda Miranda M.D. Unspec 088.81 Lyme Disease 719.46 Pain Joint Lower Leg 272.4 Hyperlipidemia Other Unspec Office Visit 11/24/2010 8:00a Main Office Ken Garcia.9 Hypothyroidism Amanda Miranda M.D. Unspec 782.1 Rash & Other Nonspec Skin Eruption Office Visit 10/13/2010 9:00a Main Office Olivia Romero, CANAL STRUCTURE OPERATOR 790.6 Abnormal Blood Chemistry Other Office Visit 02/16/2009 4:15p Main Office Abigail Barrera, 462 Pharyngitis Acute Afnp-C Office Visit 02/04/2009 11:40a Main Office Latrell Rice, 461.9 Sinusitis Acute M.D. Unspec 466.0 Bronchitis Acute 305.1 Tobacco Use Disorder Office Visit 01/31/2009 11:15a Main Office Abigail Barrera, 466.0 Bronchitis Acute Afnp-C V76.10 Screening For Malignant Neoplasm Breast 305.1 Tobacco Use Disorder Office Visit 09/10/2007 8:00p Main Office Abigail Barrrea, 916.4 Injury Superficial Afnp-C Insect Bite Hip Thigh Leg Ankle NV No Inf Office Visit 02/24/2007 3:15p Main Office Abigail Barrera, 466.0 Bronchitis Acute Afnp-C 519.11 Acute Bronchospasm 305.1 Tobacco Use Disorder Office Visit 12/10/2006 3:20p Main Office Judson Martinez, 462 Pharyngitis Acute M.D. Office Visit 12/01/2005 9:30a Main Office Olivia Romero, 536.8 Stomach Dyspepsia & CANAL STRUCTURE OPERATOR Other Spec Disorders Of Function 305.1 Tobacco Use Disorder Office Visit 11/27/2005 10:15a [facility] Olivia Romero, 599.0 UTI Urinary CANAL STRUCTURE OPERATOR Tract Infection Site Not Spec Office Visit 02/14/2004 11:00a [facility] Mickie rGanado M.D. Organism Unspec Office Visit 11/16/2002 1:40p Main Office Latrell Rice, 719.46 Pain Joint Lower M.D. Leg 682.6 Cellulitis & Abscess Leg Except Foot Office Visit 11/11/2002 9:40a Main Office Will Tucker 958.3 Trauma Neil Torres M.D. Complication Posttraumatic Wound Infection NEC Office Visit 02/25/2001 1:00p [facility] Abigail Barrera Afnp-C Office Visit 02/07/2001 1:15p Main Office Shanice Francis Afnp-C Plan of Treatment 08/21/2018 - Shayy Jones, NPR60.0 Localized edemaNew Medication: Cetirizine HCL 10 mg - 1 by mouth every dayComments:I'm not sure what is causing your swelling, but I don't see any major problems.AllComments:1. Patient has been queried about patient's goals/preferences and functional/ lifestyle goals at relevant visits. If relevant, describe: Has been discussed, noted above2. Treatment goals as explainedto the patient: see above3. Are there barriers to meeting treatment goals? Yes If Yes, please describe: Barriers include possible insurance limits, disease process, and difficulty with lifestyle changes4. Self-Management goals as described to the patient: Yes , see above As always, we strongly encourage a healthy diet and making physical activity a part of your every day life. If you have questions about how or where to start, please contact the office.
[2018-09-17 07:17] VITALS: BP 120/83
[2018-09-17] MEDS: Albuterol 2.5 MG/3 ML NEB.SOL* (0.083%) INH ONE (07:27)
--- NOTE | 2018-09-17 07:28 | UC ---
General HPI - HPI Summary HPI Summary: States she has had a cold for the past week. Past few days, feels her cough is worse in her chest with SOB. No fevers. Hard to bring anything up. No N/V/D. No rash. Cut down to 10 cig/day. Has tried inhalers in the past. Don't work for her. MEds: reviewed - History of Current Complaint Chief Complaint: UCRespiratory Stated Complaint: COUGH CONGESTION Time Seen by Provider: 09/17/18 07:14 Pain Intensity: 5 - Allergy/Home Medications Allergies/Adverse Reactions: Allergies Allergy/AdvReac Type Severity Reaction Status Date / Time levofloxacin [From Levaquin] Allergy Severe Muscle Ache Verified 09/17/18 07:10 PMH/Surg Hx/FS Hx/Imm Hx Previously Healthy: Yes Endocrine History: Hypothyroidism, Dyslipidemia - Surgical History Surgical History: Yes Surgery Procedure, Year, and Place: CYST REMOVAL UNSPECIFIED BREAST - Family History Known Family History: Negative: Hypertension Family History: Noncontributory - Social History Alcohol Use: None Substance Use Type: None Smoking Status (MU): Light Every Day Tobacco Smoker Type: Cigarettes Amount Used/How Often: 1/2 ppd Have You Smoked in the Last Year: Yes Household Exposure Type: Cigarettes Review of Systems All Other Systems Reviewed And Are Negative: Yes ENT: Positive: Sinus Congestion Respiratory: Positive: Shortness Of Breath, Cough Physical Exam Triage Information Reviewed: Yes Appearance: Well-Appearing Vital Signs: Initial Vital Signs Temp 98.3 F 09/17/18 07:11 Pulse 60 09/17/18 07:11 Resp 18 09/17/18 07:11 BP 120/83 09/17/18 07:11 Pulse Ox 97 09/17/18 07:11 Vital Signs Reviewed: Yes ENT: Positive: Pharyngeal erythema, Nasal congestion, Other - clear fluid b/l Neck: Positive: Supple, Nontender Respiratory: Positive: Other: - coarse rhonchi b/l, more predominant over right , with expiratory wheezing. No increase in work of breathing or tachypnea Cardiovascular: Positive: RRR, No Murmur Course/Dx - Course Course Of Treatment: This is a 63 yr old smoker who presents with worsening cough and SOB Assessment Nontoxic appearing Albuterol nebulizer trial here - significant improvement Willing to try inhaler with spacer - teaching provided Plan Continue Albuterol inhaler with spacer as prescribed Start Doxycycline as prescribed Medrol dose pack as prescribed Tessalon capsules as needed for cough If symptoms persist or worsen, recommend follow up with PCP or return to urgent care - Diagnoses Provider Diagnosis: Pneumonia, Reactive airway disease Discharge - Sign-Out/Discharge Documenting (check all that apply): Patient Departure All imaging exams completed and their final reports reviewed: No Studies - Discharge Plan Condition: Fair Disposition: HOME Prescriptions: Albuterol HFA INHALER* [Ventolin HFA Inhaler*] 2 puff INH Q4H PRN #1 mdi PRN Reason: Cough Benzonatate CAP* [Tessalon 100 MG CAP*] 200 mg PO TID PRN #30 cap PRN Reason: Cough DOXYcycline CAP(*) [DOXYcycline 100MG CAP(*)] 100 mg PO BID #10 cap methylPREDNISolone [Medrol] 4 mg PO .SEE BRIAN INSTRUCTION #1 tab.ds.pk Patient Education Materials: Community Acquired Pneumonia (ED), Reactive Airways Disease (ED) Referrals: Lola Gastelum MD [Primary Care Provider] - Additional Instructions: Continue Albuterol inhaler with spacer as prescribed Start Doxycycline as prescribed Medrol dose pack as prescribed Tessalon capsules as needed for cough Recommend quit smoking If symptoms persist or worsen, recommend follow up with PCP or return to urgent care - Billing Disposition and Condition Condition: FAIR Disposition: Home
== END 2018-09-17 08:13 | disposition home or self-care (01) ==
LOC: UCEAST 07:01
DX: J45.909 Unspecified asthma, uncomplicated (principal); J18.9 Pneumonia, unspecified organism; Z88.1 Allergy status to other antibiotic agents; F17.210 Nicotine dependence, cigarettes, uncomplicated
CPT/HCPCS: 99212; G0463

== ENCOUNTER 2019-02-22 07:04 | Emergency (ER) | payer BC ==
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
--- OUTSIDE RECORDS SUMMARY | 2019-02-22 07:08 | XMS REPORT | Continuity of Care Document ---
:1955 External Reference #:[id number] Author Name Lola Gastelum M.D. Address [address] [facility] [place] [address] Care Team Providers Name Role Phone Lola Gastelum M.D. - Family Medicine Care Team Information Tile Inspector Unavailable [facility] - Oxygen Equipment [facility] Supplies Care Team Information Tile Inspector [phone] Problems Active Problems Provider Date Hypothyroidism Ken [...] Description Comments Sex Unknown Tobacco Use Reviewed: 03/22/18 Current Cigarette Smoker 1/2 ppd Smoking Status Reviewed: 10/21/18 Current Cigarette Smoker 1/2 ppd ETOH Use Rare Tobacco Use Start: Unknown Light tobacco smoker (10 or 8 cigs a day , trying to fewer cigarettes/day) quit by cutting Allergies, Adverse Reactions, Alerts Active Allergies Reaction Severity Comments Date Levofloxacin tendonitis 02/28/2018 Inactive Allergies NKDA 01/08/2011 Medications Active Medications SIG Qnty Indications Ordering Date Provider Amoxicillin/Clavulana 1 by mouth twice a 14tabs J44.9 Lola Gastelum, 2018 te Potassium day x 1 week M.D. 875-125mg Tablets Azithromycin 2 tabs today, then 6tabs J44.9 [facility], 02/05/2019 250mg 1 tab daily for M.D. Tablets next 4 days Fluconazole take one by mouth 2tabs [facility], 02/04/2019 200mg x1; may repeat in 1 M.D. Tablets week Nystatin 5 milliliters swish 473ml [facility], 02/02/2019 338213Pirf/ML and spit orally M.D. Suspension four times a day until clears Ibuprofen 1 tab by mouth 90tabs M54.2 [facility], 10/05/2016 600mg Tablets every 8 hours as M.D. needed pain. take with food Vitamin D 1 tab daily 30caps [facility], 11/22/2014 2000Unit M.D. Capsules Atorvastatin Calcium take 1 tablet by 90tabs E78.2 [facility] 2014 mouth once daily M.D. 10mg Tablets Levothyroxine Sodium take 1 tablet by 90tabs E03.8 Shayy Matute 11/29/2010 mouth once daily DEISY Jones 75mcg Tablets History Medications Azithromycin 1 by mouth every 7tabs J20.9 Latrell TSaeid 01/17/2019 - 500mg day for [place], M.DSaeid 02/05/2019 Tablets bronchitis Amoxicillin/Clavulana 1 by mouth twice 14tabs W55.01xA Olivia Romero, 11/21 - te Potassium a day with food x RESIDENCE DIRECTOR 01/17/2019 875-125mg 7d Tablets Sulfacetamide Sodium 1-2 drops into 15ml Abigail 10/21/2018 - affected eye [facility], 10/28/2018 10% Solution every four hours Afnp-C while awake until clear, continue for one more day. not to exceed 7 days of use Albuterol Sulfate dispense 1 bullet 1box Abigail 10/21/2018 - into nebulizer, [facility], 11/21/2018 (2.5mg/3ML) 0.083% four times a day Afnp-C Nebulizer as needed as needed cough /wheeze Cetirizine HCL 1 by mouth every 14tabs R60.0 Shayy Matute 08/21/2018 - 10mg day DEISY Jones 10/21/2018 Tablets Immunizations CPT Code Status Date Vaccine Lot # [id number] Given 03/22/2018 Influenza Virus Vaccine, Recombinant Dna, [id number] [place] [address] Given 03/05/2017 Pneumococcal Immunization [id number] 11038 Given 01/25/2017 Influenza Vac, Quadrivalent, Slit Virus, Im [id number] 83311 Given 03/02/2016 Influenza Vac, Quadrivalent, Slit Virus, Im [id number] 72133 Given 01/14/2015 Influenza Vac, [place]riv[place], [place] [address] Given 11/18/2014 Zostivax [id number] 88144 Given 12/08/2012 Tetanus And Diptheria Adult Preservative Free >7Yrs Vital Signs Date Vital Result Comment 02/05/2019 9:21am BP Systolic 110 mmHg BP Diastolic 68 mmHg Heart Rate 64 /min Body Temperature 98.3 F Respiratory Rate 16 /min O2 % BldC Oximetry 98 % Weight 154.00 lb 01/17/2019 9:27am BP Systolic 104 mmHg BP Diastolic 78 mmHg Heart Rate 80 /min Body Temperature 97.9 F Respiratory Rate 16 /min Weight 151.00 lb Results Test Date Facility Test Result H/L Range Note Iron & Iron Binding Capacity 08/28/2018 [facility] [place] 68 g/dL Normal 50-212 Unsaturated Iron Binding < 336 g/dL Total Iron Binding Capacity 351 g/dL Normal 250-450 Transferrin 251 mg/dL Normal 203-362 % Iron Saturation 19 % Normal 15-55 Laboratory test finding 08/28/2018 [facility] Ferritin 87.1 ng/mL Normal 11-307 Folic Acid (Folate) 5.25 ng/mL >3.99 Vitamin D Total 25(Oh) 38.5 ng/mL Normal 20-50 1 Vitamin B12 286 pg/mL Normal 180-914 2 Zinc Level 0.79 g/mL 0.66-1.10 3 Anti Nuclear Antibody 0.2 U 4 1,25 Dihydroxy Vitamin D 08/28/2018 [facility] Calcitriol 38 pg/mL 18-78 5 1 Total 25-Hydroxyvitamin D2 and D3 (25-OH-VitD) <10 ng/mL (severe deficiency) 10-19 ng/mL (mild to moderate deficiency) 20-50 ng/mL (optimum levels) 51-80 ng/mL (increased risk of hypercalciuria) >80 ng/mL (toxicity possible) 2 Normal Range 180 to 914 Indeterminate Range 145 to 180 Deficient Range <145 3 ADDITIONAL INFORMATION This test was developed and its performance characteristics determined by [facility] in a manner consistent with CLIA requirements. This test has not been cleared or approved by the U.S. Food and Drug Administration. Test Performed by: [facility] - [address] [address] 4 REFERENCE VALUE <=1.0 (Negative) Test Performed by: [facility] - [address] [address] 5 ADDITIONAL INFORMATION This test was developed and its performance characteristics determined by [facility] in a manner consistent with CLIA requirements. This test has not been cleared or approved by the U.S. Food and Drug Administration. Test Performed by: [address] [address] Procedures Date Code Description Status 09/19/2018 99860 Nebulizer Treatment Completed 09/07/2016 [id number] Mammogram Completed 03/24/2015 [id number] Colonoscopy Completed 08/06/2014 [id number] Mammogram Completed 06/02/2012 [id number] Mammogram Completed Medical Devices Description No Information Available Encounters Type Date Location Provider Dx Diagnosis Office Visit 01/17/2019 Main Office Latrell Rice, J06.9 Acute upper 9:40a M.D. respiratory infection, unspecified J20.9 Acute bronchitis, unspecified Z72.0 Tobacco use Office Visit 11/21/2018 11:30a Main Office Olivia Romero, W55.01xA Bitten by cat, RESIDENCE DIRECTOR initial encounter S51.832A Puncture wound w/o foreign body of left forearm, init encntr Office Visit 10/21/2018 Main Office Abigail H10.022 Other mucopurulent 9:00a Hilsdorf, conjunctivitis, left Afnp-C eye Z72.0 Tobacco use Office Visit 09/19/2018 9:00a Main Office Mickie Yu, [facility] R05 Cough R06.2 Wheezing R06.02 Shortness of breath Z72.0 Tobacco use J44.9 Chronic obstructive pulmonary disease, unspecified Office Visit 08/21/2018 9:15a [place] Office Shayy Matute R60.0 Localized edema DEISY Jones Assessments Date Code Description Provider 02/05/2019 J44.9 Chronic obstructive pulmonary disease, Lola Gastelum M.D. unspecified 02/05/2019 F17.210 Nicotine dependence, cigarettes, Lola Gastelum M.D. uncomplicated 02/05/2019 B37.0 Candidal stomatitis Lola Gastelum M.D. 02/05/2019 J18.9 Pneumonia, unspecified organism Lola Gastelum M.D. 01/17/2019 J06.9 Acute upper respiratory infection Latrell Rice M.D. 01/17/2019 J20.9 Acute bronchitis Latrell Rice M.D. 01/17/2019 Z72.0 Tobacco use Latrell Rice M.D. 11/21/2018 W55.01xA Bitten by cat, initial encounter Olivia Romero [facility] 11/21/2018 S51.832A Puncture wound without foreign body of Olivia Romero, [facility] left forearm, initial encounter 10/21/2018 H10.022 Other mucopurulent conjunctivitis, left Abigailgary Ricoorf , Afnp-C eye 10/21/2018 Z72.0 Tobacco use Abigailgary Ricoorf, Afnp-C 09/19/2018 R05 Cough Mickie Yu, [facility] 09/19/2018 R06.2 Wheezing Mickie Gigi, [facility] 09/19/2018 R06.02 Shortness of breath Mickie Yu, [facility] 09/19/2018 Z72.0 Tobacco use Mickie Yu, [facility] 09/19/2018 J44.9 Chronic obstructive pulmonary disease, Mickie Yu, [facility] unspecified 08/21/2018 R60.0 Localized edema Shayy Jones NP Plan of Treatment Future Appointment(s):04/02/2019 10:00 am - Lola Gastelum M.D. at Main [id number] - Lola Gastelum M.D.J44.9 Chronic obstructive pulmonary disease, unspecifiedNew Medication:Amoxicillin/Clavulanate Potassium 875-125 mg - 1 by mouth twice a day x 1 weekAzithromycin 250 mg - 2 tabs today, then 1 tab daily for next 4 daysNew Xrays:Chest 2 Views, Ordered: 02/05/19Comments:Supportive care discussed. Use tylenol or ibuprofen per directions as needed for pain and headache. Use saline rinse/augusto pot twice a day for congestion. Can use mucinex 1 tab twice a day or 1 tab of Claritin or zyrtec at bedtime for congestion. Call if symptoms aren't improved or if they are worsening in the next few days.F17.210 Nicotine dependence, cigarettes, uncomplicatedComments: Patient was counselled on the importance of smoking cessation discussed taking antibiotics with probiotics and monitoring for dxhssxhpA16.0 Candidal stomatitisComments:finish lssrquhhirzV68.9 Pneumonia, unspecified organismComments:concern for possible pneumonia given chest pain and cough in smoker, check xray, start augmentin andazithro given recent antibiotic usewill treat again for thrushAllComments:Medication Management Patient Understands medications she's taking? Yes No Are there Barriers to Adherence? Yes No Has the patient been asked about herbal supplements and therapies, and OTC meds? Yes No Functional Status Description No Information Available Mental Status Description No Information Available Referrals Refer to Reason for Referral Status Appt Date [facility] nebulizer set up and tubing [place] [address] [phone]
[2019-02-22 07:20] VITALS: BP 119/86
--- NOTE | 2019-02-22 07:39 | UC ---
Eye Complaint HPI - HPI Summary HPI Summary: 63 yo female awoke this AM with left lower lid edema /irritation and crusted d/ c. no eye pain or photophobia - History of Current Complaint Chief Complaint: UCEye Stated Complaint: EYE COMPLAINT Time Seen by Provider: 02/22/19 07:32 Hx Obtained From: Patient Onset/Duration: Gradual Onset Timing: Constant Severity Initially: Mild Pain Intensity: 4 Pain Scale Used: 0-10 Numeric Location of Injury: Conjunctiva, Eye Lid (lower) Aggravating Factor(s): Nothing Alleviating Factor(s): Nothing Associated Signs And Symptoms: Positive: Drainage (Purulent), Swelling - Allergies/Home Medications Allergies/Adverse Reactions: Allergies Allergy/AdvReac Type Severity Reaction Status Date / Time levofloxacin [From Levaquin] Allergy Severe Muscle Ache Verified 09/17/18 07:10 Home Medications: Home Medications Fluconazole [Fluconazole 200 mg tab] 200 mg PO [facility] MDD 1 02/22/19 [History Confirmed 02/22/19] PMH/Surg Hx/FS Hx/Imm Hx Previously Healthy: Yes Respiratory History: COPD, Pneumonia - Surgical History Surgical History: Yes Surgery Procedure, Year, and Place: CYST REMOVAL UNSPECIFIED BREAST carpal tunnel right - Family History Known Family History: Positive: Non-Contributory Negative: Hypertension Family History: Noncontributory - Social History Alcohol Use: None Substance Use Type: None Smoking Status (MU): Heavy Every Day Tobacco Smoker Type: Cigarettes Amount Used/How Often: 1/2 ppd Have You Smoked in the Last Year: Yes Household Exposure Type: Cigarettes Review of Systems All Other Systems Reviewed And Are Negative: Yes Constitutional: Positive: Negative Skin: Positive: Negative Eyes: Positive: Drainage ENT: Positive: Negative Respiratory: Positive: Negative Cardiovascular: Positive: Negative Gastrointestinal: Positive: Negative Genitourinary: Positive: Negative Motor: Positive: Negative Neurovascular: Positive: Negative Musculoskeletal: Positive: Negative Neurological: Positive: Negative Psychological: Positive: Negative Physical Exam Triage Information Reviewed: Yes Appearance: Well-Appearing, No Pain Distress, Well-Nourished Vital Signs: Initial Vital Signs Temp 97.7 F 02/22/19 07:10 Pulse 68 02/22/19 07:10 Resp 16 02/22/19 07:10 BP 119/86 02/22/19 07:10 Pulse Ox 97 02/22/19 07:10 Vital Signs Reviewed: Yes Eyes: Positive: Conjunctiva Inflamed, Other: - left lower lid edema (mild) ENT: Positive: Hearing grossly normal, Uvula midline. Negative: Nasal congestion, Nasal drainage, Tonsillar swelling, Tonsillar exudate, Trismus, Muffled voice, Hoarse voice Neck: Positive: Supple Respiratory: Positive: Lungs clear, Normal breath sounds, No respiratory distress Cardiovascular: Positive: RRR Musculoskeletal: Positive: ROM Intact, No Edema Neurological: Positive: Alert Psychological Exam: Normal Skin Exam: Normal Eye Complaint Course/Dx - Differential Dx/Diagnosis Provider Diagnosis: Conjunctivitis, left eye Discharge ED - Sign-Out/Discharge Documenting (check all that apply): Patient Departure All imaging exams completed and their final reports reviewed: No Studies - Discharge Plan Condition: Stable Disposition: HOME Prescriptions: Polymyx/Trimethoprim OPTH* [Polytrim OPHTH*] 1 - 2 drop LEFT EYE QID #1 btl Patient Education Materials: Conjunctivitis (ED) Referrals: Lola Gastelum MD [Primary Care Provider] - Additional Instructions: see your eye doctor in a few days if not improved - Billing Disposition and Condition Condition: STABLE Disposition: Home
== END 2019-02-22 07:44 | disposition home or self-care (01) ==
LOC: UCEAST 07:04
DX: H10.9 Unspecified conjunctivitis (principal); F17.210 Nicotine dependence, cigarettes, uncomplicated; J44.9 Chronic obstructive pulmonary disease, unspecified; Z88.1 Allergy status to other antibiotic agents
CPT/HCPCS: 99212; G0463

== ENCOUNTER 2019-05-07 07:46 | Emergency (ER) | payer BC ==
[2019-05-07 08:03] VITALS: BP 127/76
--- NOTE | 2019-05-07 08:16 | UC ---
Skin Complaint HPI - HPI Summary HPI Summary: 64-year-old woman comes in with a chief complaint of a cat injury to her right forearm. 2 days ago the cat was jumping up on her and it started to fall and she ended up with a puncture wound in her right forearm. She believes the cat' s claw punctured her right forearm. She is not completely sure that in she's not sure if it could have been a bite. Is a house cat that she reports is up-to -date on its rabies shots and is available. Patient started to have some redness around the site and some swelling. Her primary care doctor called in Augmentin 500 mg twice a day for 7 days yesterday. Patient took a single dose last night. The redness and swelling continues to increase. No fevers or chills feels well otherwise. No weakness or numbness. - History of Current Complaint Chief Complaint: UCSkin Time Seen by Provider: 05/07/19 08:03 Stated Complaint: CAT SCRATCH ON RT ARM Pain Intensity: 0 - Allergy/Home Medications Allergies/Adverse Reactions: Allergies Allergy/AdvReac Type Severity Reaction Status Date / Time levofloxacin [From Levaquin] Allergy Severe Muscle Ache Verified 05/07/19 07:54 PMH/Surg Hx/FS Hx/Imm Hx Previously Healthy: Yes Endocrine History: Hypothyroidism, Dyslipidemia Respiratory History: Asthma - Surgical History Surgical History: Yes Surgery Procedure, Year, and Place: CYST REMOVAL UNSPECIFIED BREAST carpal tunnel right - Family History Known Family History: Positive: Non-Contributory Negative: Hypertension Family History: Noncontributory - Social History Alcohol Use: None Substance Use Type: None Smoking Status (MU): Heavy Every Day Tobacco Smoker Type: Cigarettes Amount Used/How Often: 1/2 ppd Have You Smoked in the Last Year: Yes Household Exposure Type: Cigarettes - Immunization History Most Recent Tetanus Shot: 03/2017 Review of Systems All Other Systems Reviewed And Are Negative: Yes Constitutional: Positive: Negative Skin: Positive: Other - SEE HPI Eyes: Positive: Negative ENT: Positive: Negative Respiratory: Positive: Negative Cardiovascular: Positive: Negative Gastrointestinal: Positive: Negative Motor: Positive: Negative Neurovascular: Positive: Negative Musculoskeletal: Positive: Negative Neurological: Positive: Negative Psychological: Positive: Negative Is Patient Immunocompromised?: No Physical Exam Triage Information Reviewed: Yes Appearance: Well-Appearing, No Pain Distress, Well-Nourished Vital Signs: Initial Vital Signs Temp 97.9 F 05/07/19 07:56 Pulse 87 05/07/19 07:56 Resp 16 05/07/19 07:56 BP 127/76 05/07/19 07:56 Pulse Ox 98 05/07/19 07:56 Vital Signs Reviewed: Yes Eye Exam: Normal Eyes: Positive: Conjunctiva Clear Neck: Positive: Supple Respiratory: Positive: Lungs clear, Normal breath sounds, No respiratory distress Cardiovascular: Positive: RRR Musculoskeletal: Positive: Strength Intact, ROM Intact Neurological: Positive: Alert, Muscle Tone Normal Psychological: Positive: Age Appropriate Behavior Skin: Positive: Other - On the right forearm there is a 5 cm elliptical area of erythema with some slight swelling with a punctate area of a puncture wound in the center. There is no fluctuant mass for incision and drainage. There is no drainage. There is no streaking. There is no lymphadenopathy in the arm. Course/Dx - Course Course Of Treatment: Patient's area of cellulitis surrounding the puncture wound has been increasing. Increase the dose of Augmentin from 500 mg twice a day to 875 mg twice a day. Also added a azithromycin as if this is a cat scratch the azithromycin should also cover the bacteria involved. Will continue with the Augmentin because it does appear to be cellulitic and we are not 100% sure whether or not there was a cat bite. Nursing is aware of the possibility of a cat bite and they've filled out a cat bite form and will discuss that with [facility]. Patient reports the cat is up-to-date on immunizations and is readily available so at this time it appears that this is low risk for rabies. I did let the patient know that if she did not start improving in the 4 hours or she got worse she needed to the emergency room for probable IV antibiotics. - Diagnoses Provider Diagnosis: Cat scratch of right forearm with infection Discharge ED - Sign-Out/Discharge Documenting (check all that apply): Patient Departure All imaging exams completed and their final reports reviewed: No Studies - Discharge Plan Condition: Stable Disposition: HOME Prescriptions: Amoxicillin/Clavulanate TAB* [Augmentin TAB 875*] 875 mg PO BID #20 tab Azithromyxin BRIAN (NF) [Z-Brian (Zithromax) 250 mg tabs #6] 2 tab PO .TODAY, THEN 1 DAILY #6 tab Patient Education Materials: Cellulitis (ED), Cat Scratch Disease (ED) Referrals: Lola Gastelum MD [Primary Care Provider] - Additional Instructions: FOLLOW UP WITH YOUR DOCTOR. GO TO THE EMERGENCY DEPARTMENT IF WORSE: SPREAD OF INFECTION, FEVER, YOU FEEL ILL OR ANY QUESTIONS OR CONCERNS. Stop taking the Augmentin 500 mg and replaced that with the Augmentin 875 mg twice a day. Take the azithromycin as directed. FOLLOW UP WITH [facility], . - Billing Disposition and Condition Condition: STABLE Disposition: Home
== END 2019-05-07 08:30 | disposition home or self-care (01) ==
LOC: UCEAST 07:46
DX: S50.811A Abrasion of right forearm, initial encounter (principal); L08.9 Local infection of the skin and subcutaneous tissue, unspecified; J45.909 Unspecified asthma, uncomplicated; F17.210 Nicotine dependence, cigarettes, uncomplicated; Z88.1 Allergy status to other antibiotic agents; W55.03XA Scratched by cat, initial encounter; Y92.9 Unspecified place or not applicable
CPT/HCPCS: 99212; G0463

== ENCOUNTER 2019-10-29 14:59 | Inpatient (IN) ==
[2019-10-29 15:55] LABS: ABS Lymphocytes 0.5 10^3/ul (1.0-4.8); ABS Monocytes 0.1 10^3/ul (0-0.8); Eosinophil % 0.3 %; Hematocrit 41 % (35-47); Lymphocyte % 4.5 %; Mean Corpuscular HGB Conc 34 g/dL (31-36); Mean Corpuscular Hemoglobin 30 pg (27-31); Mean Corpuscular Volume 88 fL (80-97); Mean Platelet Volume 7.3 fL (7.4-10.4); Platelet Count 295 10^3/uL (150-450); Red Blood Count 4.67 10^6 /uL (3.70-4.87); Red Cell Distribution Width 15 % (10-15); White Blood Count 10.2 10^3/uL (3.5-10.8)
[2019-10-29 16:27] LABS: Albumin/Globulin Ratio 1.4 (1-3); BUN/Creatinine Ratio 16.3 (8-20); Calcium 9.3 mg/dL (8.6-10.3); EGFR African American 74.1 (>60); EGFR Non-African American 61.3 (>60); Globulin 2.9 g/dL (2-4); Potassium 3.3 mmol/L (3.5-5.0); Total Bilirubin 0.9 mg/dL (0.2-1.0); Total Protein 6.9 g/dL (6.4-8.9)
[2019-10-29] MEDS ORDERED: Iohexol 350 (CONTRAST) 500 ML MDV IV ONE (16:30)
[2019-10-29] MEDS ORDERED: Potassium Chlor 20 meq TAB.ER PO ONE (17:14)
[2019-10-29 17:17] LABS: Troponin I 0.01 ng/mL (<0.03)
[2019-10-29] MEDS: methylPREDNISolone SOD 40 mg/ml 1 ml VIAL IV SCH (17:54)
[2019-10-29] MEDS: Albuterol/Ipratropium NEB.SOL (2.5/0.5 MG) 3 ML NEB.SOLN INH SCH (19:50)
[2019-10-29] MEDS: Mometasone/Formoter 200/5 MDI INH SCH (19:50)
[2019-10-29] MEDS: Heparin 5000 UNITS/ML 1 mL VIAL SUBCUT SCH (22:23)
[2019-10-30] MEDS: methylPREDNISolone SOD 40 mg/ml 1 ml VIAL IV SCH ×2 (06:09→18:39)
[2019-10-30] MEDS: Heparin 5000 UNITS/ML 1 mL VIAL SUBCUT SCH ×3 (06:09→20:51)
[2019-10-30] MEDS: Albuterol/Ipratropium NEB.SOL (2.5/0.5 MG) 3 ML NEB.SOLN INH SCH ×4 (06:42→19:28)
[2019-10-30] MEDS: Mometasone/Formoter 200/5 MDI INH SCH ×2 (07:32→19:28)
[2019-10-31] MEDS: Albuterol/Ipratropium NEB.SOL (2.5/0.5 MG) 3 ML NEB.SOLN INH SCH ×2 (01:36→08:01)
[2019-10-31] MEDS: Heparin 5000 UNITS/ML 1 mL VIAL SUBCUT SCH ×3 (05:41→20:38)
[2019-10-31] MEDS: methylPREDNISolone SOD 40 mg/ml 1 ml VIAL IV SCH ×2 (05:41→18:03)
[2019-10-31] MEDS: Mometasone/Formoter 200/5 MDI INH SCH ×2 (08:01→19:18)
[2019-10-31] MEDS ORDERED: Albuterol 2.5mg/3 ml (0.083%) NEB.SOLN INH PRN (08:13)
[2019-10-31] MEDS: guaiFENesin 100 mg/5 ml LIQ unit dose cup PO PRN (20:38)
[2019-11-01 05:12] LABS: ABS Monocytes 0.6 10^3/ul (0-0.8); Eosinophil % 0.1 %; Hematocrit 41 % (35-47); Lymphocyte % 7.3 %; Mean Corpuscular HGB Conc 34 g/dL (31-36); Mean Corpuscular Hemoglobin 30 pg (27-31); Mean Corpuscular Volume 88 fL (80-97); Mean Platelet Volume 7.3 fL (7.4-10.4); Nucleated Red Blood Cells % 0.1; Platelet Count 285 10^3/uL (150-450); Red Blood Count 4.65 10^6 /uL (3.70-4.87); Red Cell Distribution Width 15 % (10-15); White Blood Count 13.5 10^3/uL (3.5-10.8)
[2019-11-01] MEDS: methylPREDNISolone SOD 40 mg/ml 1 ml VIAL IV SCH ×2 (05:44→17:37)
[2019-11-01] MEDS: Heparin 5000 UNITS/ML 1 mL VIAL SUBCUT SCH ×3 (05:44→21:19)
[2019-11-01 05:45] LABS: BUN/Creatinine Ratio 22.8 (8-20); C Reactive Protein 3.01 mg/L (<8.01); EGFR African American 74.1 (>60); EGFR Non-African American 61.3 (>60); Potassium 4.2 mmol/L (3.5-5.0)
[2019-11-01] MEDS: Mometasone/Formoter 200/5 MDI INH SCH ×2 (07:56→19:27)
[2019-11-01] MEDS: guaiFENesin 100 mg/5 ml LIQ unit dose cup PO PRN (08:24)
[2019-11-02] MEDS: methylPREDNISolone SOD 40 mg/ml 1 ml VIAL IV SCH ×2 (05:59→18:20)
[2019-11-02] MEDS: Heparin 5000 UNITS/ML 1 mL VIAL SUBCUT SCH ×3 (05:59→21:26)
[2019-11-02] MEDS: SPIRIVA Respimat (tiotropium) 2.5 mcg/inh Inhaler INH SCH (07:29)
[2019-11-02] MEDS: Mometasone/Formoter 200/5 MDI INH SCH ×2 (07:31→20:05)
[2019-11-03] MEDS: Heparin 5000 UNITS/ML 1 mL VIAL SUBCUT SCH ×2 (05:57→14:00)
[2019-11-03] MEDS: methylPREDNISolone SOD 40 mg/ml 1 ml VIAL IV SCH (05:57)
[2019-11-03] MEDS: SPIRIVA Respimat (tiotropium) 2.5 mcg/inh Inhaler INH SCH (07:53)
[2019-11-03] MEDS: Mometasone/Formoter 200/5 MDI INH SCH (07:53)
[2019-11-03 11:23] VITALS: BP 115/68
== END 2019-11-03 15:53 | disposition home or self-care (01) | DRG 140 ==
LOC: ED 14:59 → MED 14:59
PROVIDERS: ADMIT Internal Medicine; ATTEND Internal Medicine

== ENCOUNTER 2020-06-03 10:24 | Observation (INO) ==
[~2020-06-03 10:24] MED LIST: Buffered Lidocaine 1% SYRIN 1 ml INTRADERM ONE; Dexamethasone IV 4 MG/ML VIAL 1 ml VIAL IV SLOW PU ONE; Ertapenem 1 GM in NS 0.9% 50 ML IVPB ONE; Famotidine IV 10 MG/ML 2 ml VIAL (20 mg) IV ONE; Levalbuterol 0.63MG/3ML NEB UNIT OF USE INH ONE
[2020-06-03] MEDS ORDERED: Levalbuterol 0.63MG/3ML NEB UNIT OF USE INH ONE (10:44)
[2020-06-03] MEDS ORDERED: Dexamethasone IV 4 MG/ML VIAL 1 ml VIAL ONE ×2 (10:44→13:19)
[2020-06-03] MEDS ORDERED: Famotidine IV 10 MG/ML 2 ml VIAL (20 mg) ONE (10:45)
[2020-06-03] MEDS ORDERED: Heparin 5000 UNITS/ML 1 mL VIAL ONE (10:48)
[2020-06-03] MEDS: Lactated Ringers 1000 ml BAG 1,000 ML IV SCH ×2 (11:03→23:11)
[2020-06-03] MEDS ORDERED: Morphine 4 MG/ML VIAL (1 ml) IV PRN (11:54)
[2020-06-03] MEDS ORDERED: Naloxone 0.4 mg VIAL 0.4 mg/ml 1 ml VIAL IV PRN (11:54)
[2020-06-03] MEDS ORDERED: Prochlorperazine 5 mg/ml 2 ml VIAL (10 mg) IV PRN (11:54)
[2020-06-03] MEDS ORDERED: Levalbuterol 0.63MG/3ML NEB UNIT OF USE INH PRN (11:54)
[2020-06-03] MEDS ORDERED: fentaNYL 100 mcg/2 ml 50 MCG/ML VIAL IV PRN (11:54)
[2020-06-03] MEDS ORDERED: Ketamine HCL 50 mg/ml 10 ml VIAL (500 MG) ONE (13:17)
[2020-06-03] MEDS ORDERED: Propofol 10 MG/ML 20 ML BTL ONE (13:17)
[2020-06-03] MEDS ORDERED: fentaNYL 100 mcg/2 ml 50 MCG/ML VIAL ONE ×2 (13:17→14:29)
[2020-06-03] MEDS ORDERED: Midazolam 2 mg/2 ml VIAL 1 mg/ml 2 ml VIAL (2 mg) ONE (13:17)
[2020-06-03] MEDS ORDERED: Glycopyrrolate IV 0.2 MG/ML 1 ML VIAL ONE (13:17)
[2020-06-03] MEDS ORDERED: Rocuronium 50 mg VIAL 10 mg/ml 5 ml VIAL (50 mg) ONE (13:17)
[2020-06-03] MEDS ORDERED: Ondansetron 4 mg VIAL 2 MG/ML 2 ml VIAL ONE (13:19)
[2020-06-03] MEDS ORDERED: Bupivacaine 0.25% SDV PF 10 ML VIAL INJ ONE (13:20)
[2020-06-03] MEDS ORDERED: Lidocaine 2% PF 5 ML VIAL ONE (13:24)
[2020-06-03] MEDS ORDERED: HYDROmorphone 1 MG/1 ML SYRINGE ONE (14:59)
[2020-06-03] MEDS ORDERED: Prochlorperazine 5 mg/ml 2 ml VIAL (10 mg) ONE (18:32)
[2020-06-03] MEDS ORDERED: Ondansetron 4 mg VIAL 2 MG/ML 2 ml VIAL IV PRN (22:04)
[2020-06-03] MEDS ORDERED: LR IV SCH (23:00)
[2020-06-04 07:45] VITALS: BP 118/59
== END 2020-06-04 11:05 | disposition home or self-care (01) ==
LOC: SSU 10:24 → OR 10:24
PROVIDERS: ADMIT Surgery; ATTEND Surgery